=== PATIENT | male | born 1950 | race Caucasian/White ===

== ENCOUNTER 2025-01-09 10:28 | Emergency (ER) | payer OTHER, SELFPAY ==
[2025-01-09 10:42] VITALS: BP 107/74; PULSE 89; RESP 16; TEMP 36.9; O2SAT 94; BMI 28.0
--- NOTE | 2025-01-09 10:59 | CRLHL7_ITS ---
For Patients: As a result of the Century Cures Act, medical imaging exams and procedure reports are released immediately into your electronic medical record. You may view this report before your referring provider. If you have questions, please contact your health care provider. INDICATION: Trauma. Hit in head by object. Left eyebrow laceration. TECHNIQUE: CT of the head without contrast. Coronal and sagittal reformats are included. COMPARISON: None. FINDINGS: No acute intracranial hemorrhage. No mass effect or midline shift. No hydrocephalus or extra-axial collections. Scattered white matter hypoattenuation, typical for chronic microvascular ischemic change. Intracranial vascular calcifications. No acute osseous abnormalities. Mastoid air cells and paranasal sinuses are clear. Small left supraorbital laceration. IMPRESSION: IMPRESSION: 1. No acute intracranial abnormalities. Please note that all CT scans at this facility use dose modulation, iterative reconstruction, and/or weight-based dosing when appropriate to reduce radiation dose to as low as reasonably achievable. Dictated by Truong Jordan MD @ 01/09/2025 11:30:00 AM (Electronically Signed)
--- NOTE | 2025-01-09 11:31 | ED.GENADULT ---
HPI - General Adult General Date Seen: 01/09/25 Chief complaint: Laceration/Wound Stated complaint: laceration on forehead Time Seen by Provider: 01/09/25 10:51 History of Present Illness HPI narrative: Patient is a 74-year-old male here with a laceration over his left eyebrow. 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 No loss of consciousness. Bleeding controlled. No neck pain or other complaints. Does not complain of severe headache, vomiting or other markers are of significant head injury. Related Data Allergies Allergy/AdvReac Type Severity Reaction Status Date / Time No Known Drug Allergies Allergy Verified 01/09/25 10:49 Exam Narrative: Exam Narrative: Vital signs reviewed In general, alert, well-appearing elderly male. Head: Normocephalic. Over his left eyebrow there is a 4 cm laceration which is roughly the vertically oriented, this is deep down to the galea. Cannot rule out step off with palpation. No obvious foreign body. Eyes: Pupils are equal and reactive, extraocular movements are full. ENT: No other facial trauma. Const: Vital Signs, click to edit/add: Vital Signs - 24 hr 01/09/25 10:42 01/09/25 12:10 Temperature 98.4 F Pulse Rate [Right Radial] 89 82 Respiratory Rate 16 16 Blood Pressure [Le ft Upper Arm] 107/74 119/80 Pulse Oximetry 94 Oxygen Delivery Me thod Room Air Documenting provider has reviewed patient's vital signs: yes Course Course ED Course: Elected to do a CT scan just to rule out skull fracture, I do not see any evidence of skull fracture and radiology read is negative. Procedure note: The wound was anesthetized using lidocaine with epinephrine, explored without evidence of foreign body. Irrigated by dermatology technician. Closed using deep sutures with 5 0 Vicryl, 2 deep sutures were placed. superficial sutures using 5 0 nylon, a total of 6 simple interrupted superficial sutures were placed. He tolerated this well. Antibiotic ointment is placed over the wound. Discussed routine wound care. Recommend suture removal in 5-7 days, he says he will go to the MD in [place] to have this done. Return for any signs of infection, severe head injury such as severe headache, vomiting confusion etcetera. Vital Signs Vital signs: Initial Vital Signs Temperature 98.4 F 01/09/25 10:42 Temperature Source Temporal Artery Scan 01/09/25 10:42 Pulse Rate 89 01/09/25 10:42 Pulse Rhythm Regular 01/09/25 10:42 Respiratory Rate 16 01/09/25 10:42 Blood Pressure 107/74 01/09/25 10:42 Blood Pressure Mean 85 01/09/25 10:42 Pulse Oximetry 94 01/09/25 10:42 Oxygen Delivery Method Room Air 01/09/25 10:42 Vital Signs Temperature 98.4 F 01/09/25 10:42 Pulse Rate 89 01/09/25 10:42 Respiratory Rate 16 01/09/25 10:42 Blood Pressure 107/74 01/09/25 10:42 Pulse Oximetry 94 01/09/25 10:42 Oxygen Delivery Method Room Air 01/09/25 10:42 Temperature 98.4 F 01/09/25 10:42 Pulse Rate 82 01/09/25 12:10 Respiratory Rate 16 01/09/25 12:10 Blood Pressure 119/80 01/09/25 12:10 Pulse Oximetry 94 01/09/25 10:42 Oxygen Delivery Method Room Air 01/09/25 10:42 Discharge Plan Discharge Clinical Impression: Forehead laceration Patient Disposition: Home, Self-Care Condition: Improved Instructions: Laceration (ED) Additional Instructions: Suture removal in 5-7 days at your clinic. Return any time for signs of infection. I would recommend an ointment such as Vaseline or Aquaphor on the wound several times a day to keep the stitches from getting scabbed over. This will help with wound healing as well as make it easier to take out the stitches. Follow Up/Referrals: Provider,Not a Local [Primary Care Provider] - Stand Alone [facility]: [facility] Inst[facility]
[2025-01-09 12:10] VITALS: BP 119/80; PULSE 82; RESP 16
--- OUTSIDE RECORDS SUMMARY | 2025-01-09 17:46 | XMS_ITS | Encounter Summary ---
Author Name [facility] [place] [facility] [place] Address [address] [place] [address] Care Team Providers Care Supervisor [employer] Name Role Phone CRESENCIO FLORENCE Primary Care Provider Unavaila ble Insurance Providers: All historical and current Section Date Range: From patient's date of to the date document was created. This section includes the names of all active insurance providers for the patient. Insurance Provider Type of Coverage Plan Name Start of Policy Coverage End of Policy Coverage Group Number Member ID Insurance Provider's Telephone Number Policy Munoz's Name Patient's Relationship to Policy Munoz MEDICARE (WNR) MEDICARE (M) PART B Jul 25, 2016 PART B [id number] [phone] LORIE FLEMING PATIENT MEDICARE (WNR) MEDICARE (M) PART A Jul 25, 2016 PART A [id number] [phone] LORIE FLEMING PATIENT MEDICARE (WNR) MEDICARE (M) PART A Jul 25, 2016 PART A [id number] [phone] LORIE FLEMING PATIENT MEDICARE (WNR) MEDICARE (M) PART B Jul 25, 2016 PART B [id number] [phone] LORIE FLEMING PATIENT MEDICARE (WNR) MEDICARE (M) PART A Jul 25, 2016 PART A [id number] LORIE FLEMING PATIENT MEDICARE (WNR) MEDICARE (M) PART B Jul 25, 2016 PART B [id number] [phone] LORIE FLEMING PATIENT MEDICARE (WNR) MEDICARE (M) PART A Jul 25, 2016 PART A [id number] LORIE FLEMING PATIENT MEDICARE (WNR) MEDICARE (M) PART B Jul 25, 2016 PART B [id number] LORIE FLEMING PATIENT Selected Encounter This section includes the information on record at [place] for the Encounter. Date/Time Encounter Type Encounter Description Reason Pro vider Source May 07, 2024 10:48 AM Outpatient Encounter ADMIN PAT ACTIVTIES (MASNONCT) IHE Encounter Template Text not used by [place] Plan of Treatment: Future Appointments (+ 6 months) and Future Tests (+/- 45 days) The Plan of Treatment section includes future care activities for the patient from all [place] treatmentfacilities. This section includes future appointments and future orders which are active, pending or scheduled. Future Appointments This section includes appointments that were scheduled to occur 6 months from the date of the Encounter, up to a maximum of 20 appointments. The data comes from all [place] treatment facilities. Appointment Date/Time Appointment Type Appointme nt Facility Name Nov 01, 2024 02:00 PM AMBULATORY - SURGERY [facility] Advance Directives: All historical and current Section Date Range: From patient's date of to the date document was created. This section includes ALL of a patient's completed or amended [place] Advance and Rescinded Directives. The entries below indicate that a directive exists for the patient, but an actual copy is not included with this document. The data comes from all [place] facilities. Date Advance Directives Provider Source Feb 07, 2022 ADVANCE DIRECTIVE DISCUSSION [facility] Feb 07, 2022 ADVANCE DIRECTIVE [facility] Encounter Notes: All associated encounter notes This section contains the clinical notes associated to the Encounter. Date/Time Encounter Note(s) Provider Source May 07, 2024 10:48 AM TRAVELING/RELOCATI NG CONSULT: LOCAL TITLE: TRAVELING UNVIERSAL CONSULT RESULTS STANDARD TITLE: TRAVELING/RELOCATING CONSULT DATE OF NOTE: MAY 07, 2024@10:48 ENTRY DATE: MAY 07, 2024@10:48:29 AUTHOR: KRAUSHAAR,TERRIL A EXP COSIGNER: URGENCY: STATUS: COMPLETED Traveling Loyal consult received from [facility] with request for Dermatology. A [facility] CC- Dermatology Consult has been placed for the Traveling Loyal and the Clinic has scheduled on 05/05/24 @ 14:15. /toshia/ Bentley Ramos MSN, SILVER, pillow filler Coordinator Signed: 05/07/2024 10:48 RUBIA RAMOS [facility]
--- OUTSIDE RECORDS SUMMARY | 2025-01-09 17:46 | XMS_ITS | Encounter Summary ---
Author Name [facility] [facility] [place] [facility] [place] Address [address] [place] [address] Care Team Providers Care Journeyman Electrician Pv Installer Name Role Phone CRESENCIO FLORENCE Primary Care [...] Policy Munoz MEDICARE (WNR) MEDICARE (M) PART A Jul 25, 2016 PART A [id number] [phone] LONNIELORIE MARION PATIENT MEDICARE (WNR) MEDICARE (M) PART B Jul 25, 2016 PART B [id number] [phone] LORIE FLEMING PATIENT MEDICARE (WNR) MEDICARE (M) PART B Jul 25, 2016 PART B [id number] [phone] LONNIELORIE MARION PATIENT MEDICARE (WNR) MEDICARE (M) PART A Jul 25, 2016 PART A [id number] [phone] LONNIELORIE MARION PATIENT MEDICARE (WNR) MEDICARE (M) PART A Jul 25, 2016 PART A [id number] LORIE FLEMING MARION PATIENT MEDICARE (WNR) MEDICARE (M) PART B Jul 25, 2016 PART B [id number] LORIE FLEMING PATIENT MEDICARE (WNR) MEDICARE (M) PART A Jul 25, 2016 PART A [id number] LORIE FLEMING PATIENT MEDICARE (WNR) MEDICARE (M) PART B Jul 25, 2016 PART B [id number] LORIE FLEMING PATIENT Selected Encounter This section includes the information on record at [place] for the Encounter. Date/Time Encounter Type Encounter Description Reason Pro vider Source Dec 20, 2024 12:00 AM Outpatient Encounter EVENT (HISTORICAL) IHE Encounter Template Text not used by [place] Plan of Treatment: Future Appointments (+ 6 months) and Future Tests (+/- 45 days) The Plan of Treatment section includes future care activities for the [facility] [place] [facility] This section includes future appointments and future orders which are active, pending or scheduled. Future Appointments This section includes appointments that were scheduled to occur 6 months from the date of the Encounter, up to a maximum of 20 appointments. The data comes from all [facility]. Appointment Date/Time Appointment Type Appointme nt Facility Name December 23, 2024 09:40 AM AMBULATORY - SURGERY [facility] January 07, 2025 11:00 AM AMBULATORY - SURGERY [facility] Mar 02, 2025 01:15 PM AMBULATORY - NONE [facility] Active, Pending, and Scheduled Orders This section includes a listing of several types of active, pending, and scheduled orders, including clinic medications orders, diagnostic test orders, procedure orders and consult orders; where the start date of the order is 45 days before the date of the Encounter or 45 days after the date of theEncounter. The data comes from all [facility]. Test Date/Time Test Type Test Details Facility Name Dec 20, 2024 02:57 PM Consult Order ENDOSCOPY OUTPT PROCEDURE Cons Care Management Coordinator's Choice [facility] Dec 20, 2024 02:59 PM Consult Order ORTHOPEDIC S OUTPT-HIP Cons Care Management Coordinator's Choice [facility] Lab Results: +/- 30 days of the encounter This section includes the Chemistry and Hematology Lab Results on record with [place] for the patient. Radiology Reports and Pathology Reports are provided separately, in subsequent sections. Lab Results This section contains the Chemistry/Hematology Results that were resulted 30 days before or 30 daysafter the date of the Encounter. Date/Time Source Result Type Result - Unit Interpretation Reference Range Specimen Type Comment Dec 20, 2024 03:05 PM MARY[facility] NA[facility] COMPREHENSIVE METABOLIC PANEL+MG PLASMA Specim en Type: PLASMA No comment entered. Ordering Provider: PEDRO FLORENCE Report Released Date/Time: Dec 20, 2024 02:45 PM Reporting Lab: [facility] [id number] Performing Lab: [facility] [id number] CREATININE 1.2 mg/dL 0.7-1.2 UREA NITROGEN 11 mg/dL 8-26 GLUCOSE 111 mg/dL H 70-100 SODIUM 140 mmol/L 136-145 POTASSIUM 4.2 mmol/L 3.5-5.1 CHLORIDE 106 mmol/L 98-107 CO2 21 mmol/L L 22-29 CALCIUM 9.9 mg/dL 8.4-10.2 PROTEIN,TOTAL 8.1 g/dL 6.4-8.3 ALBUMIN 5.2 g/dL H 3.5-5.0 BILIRUBIN, TOTAL 0.6 mg/dL 0.2-1.2 MAGNESIUM 2.2 mg/dL 1.6-2.6 ANION GAP 13 mmol/L 5-15 ALKALINE PHOSPHATASE 56 U/L 40-150 ALT/SGPT 17 U/L <44 AST/SGOT 21 U/L 11-34 .CREAT EGFR(CKD-EPI) 64 >60 Dec 20, 2024 03:05 PM MARYLU NAIR CBC & DIFF BLOOD Specimen Type: BLOOD Comment: Automated Differential Performed Ordering Provider: CRESENCIO FLORENCE Report Released Date/Time: Dec 20, 2024 02:45 PM Reporting Lab: [facility] [id number] Performing Lab: [facility] [id number] WBC 9.2 4.0-11.0 RBC 5.08 4.60-6.20 HGB 15.8 g/dL 13.5-17.9 HCT 47.9 41.0-54.0 MCV 94.3 fL 80.0-100.0 MCH 31.1 pg 27.0-33.0 MCHC 33.0 g/dL 32.0-37.5 PLT 193 150-400 MPV 9.9 fL 9.1-13.0 NEUT 68.6 40.0-80.0 LYMPHS 22.3 15.0-45.0 MONO 6.9 2.0-12.0 EOSINO 1.7 0.0-6.0 BASO 0.3 0.0-2.0 RDW 13.1 11.5-14.5 ABS LYMPH 2.1 1.0-4.0 ABS MONO 0.6 0.1-1.0 ABS NEUT 6.3 2.0-7.7 ABS EOS 0.2 0.0-0.5 ABS BASO 0.0 0.0-0.2 IG(META,MYELO,PRO) 0.2 ABS IMMATURE GRAN 0.0 0.0-0.1 Social History: Smoking Status (Most current) and Tobacco Use (All prior to encounter date) This section includes the most current, and the historical, smoking and tobacco- related health factors from the [place] facility where the Encounter took place. Current Smoking Status This section includes the most current smoking, or tobacco-related health factor, from the [place] facility where the Encounter took place. Date/Time Current Smoking Status Comment Facil ity January 17, 2021 11:17 AM VA-TOBACCO USER EVERY DAY [facility] Tobacco Use History This section includes a history of the smoking, or tobacco-related health factors, that were collected on or before the date of the Encounter. The data comes from the [place] facility where the Encounter took place. Date/Time Smoking Status/Tobacco Use Comment F acility January 17, 2021 11:17 AM VA-TOBACCO USE > 1 5 LESS THAN 30 YEARS [facility] January 17, 2021 11:17 AM VA-TOBACCO USE ADVICE [facility] January 17, 2021 11:17 AM VA-TOBACCO USE CONVERSION WORKER NO [facility] January 17, 2021 11:17 AM VA-TOBACCO USE MED NO [facility] January 17, 2021 11:17 AM VA-TOBACCO USER EVERY DAY [facility] Dec 08, 2019 08:49 AM VA-TOBACCO USE 30 YEARS OR MORE [facility] Dec 08, 2019 08:49 AM VA-TOBACCO USE ADVICE [facility] Dec 08, 2019 08:49 AM VA-TOBACCO USE CONVERSION WORKER NO [facility] Dec 08, 2019 08:49 AM VA-TOBACCO USE MED NO [facility] Dec 08, 2019 08:49 AM VA-TOBACCO USE WI 30 MIN OF WAKE UP [facility] Dec 08, 2019 08:49 AM VA-TOBACCO USER EVERY DAY [facility] Nov 22, 2013 08:44 AM FORMER TOBACCO USE >1Y <7Y [facility] Advance Directives: All historical and current Section Date Range: From patient's date of to the date document was created. This section includes ALL of a patient's completed or amended [place] Advance and Rescinded Directives. The entries below indicate that a directive exists for the patient, but an actual copy is not included with this document. The data comes from all [place] facilities. Date Advance Directives Provider Source Feb 07, 2022 ADVANCE DIRECTIVE NIA [facility] Feb 07, 2022 ADVANCE DIRECTIVE DISCUSSION SLY [facility] Radiology Reports: +/- 30 days of the encounter Radiology Reports For cases when an order for radiology services may have been completed prior to the date of the Encounter, the report list includes the Radiology Reports that were completed up to 30 days before dateof the Encounter. For cases when an order for radiology services may have been completed after the date of the Encounter, the report list also includes the Radiology Reports that were completed up to30 days after date of the Encounter. The data comes from all [place] treatment facilities. Date/Time Radiology Report Provider Source Dec 20, 2024 02:59 PM HIP LEFT 2 VIEWS W/PELVIS: EDER FLEMING [id number] -[phone] M Exm Date: DEC 20, 2024@14:59 Req Phys: CRESENCIO FLORENCE Pat Loc: [facility] (Req'g Loc) Im Loc: [facility] RADIOLOGY Service: [place] [address] (Case [id number] COMPLETE) HIP LEFT 2 VIEWS W/PELVIS (RAD Detailed) CPT:09661 Proc Modifiers : LEFT Reason for Study: left hip pain Clinical History: left hi pain gets very stiff My pager number on record is: . I confirm that the pager number/cell phone number above is correct for reporting critical results. Trainees only: Enter your staff provider's info here: LAST CREATININE 1.0 (02/04/24) Report Status: Verified Date Reported: DEC 20, 2024 Date Verified: DEC 20, 2024 [employer] E-Sig:/ES/LESLYE PEREZ MD Report: EXAMINATION: AP pelvis, 2 views left hip CLINICAL HISTORY: Left hip pain. COMPARISON FILMS: Previous dated 01/18/2021. Impression: Generalized bony demineralization. Degenerative changes in the sacroiliac joints and mild degenerative changes in both hips not significantly changed since 2020. 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 No acute fracture. No dislocation. No radiopaque foreign bodies. Report Sign Date/Time: 12/20/2024 3:25 PM Primary Interpreting Staff: LESLYE PEREZ MD, RADIOLOGIST ([employer]) /LESLYE [facility]
--- OUTSIDE RECORDS SUMMARY | 2025-01-09 17:46 | XMS_ITS | Encounter Summary ---
Author Name [facility] [place] Address [address] [place] [address] Care Team Providers Care Director Of Premium [employer] Name Role Phone CRESENCIO FLORENCE Primary Care [...] PART A Jul 25, 2016 PART A [id number] [phone] LORIE FLEMING PATIENT MEDICARE (WNR) MEDICARE (M) PART B Jul 25, 2016 PART B [id number] [phone] LONNIELORIE MARION PATIENT MEDICARE (WNR) MEDICARE (M) PART A Jul 25, 2016 PART A [id number] [phone] LORIE FLEMING MARION PATIENT MEDICARE (WNR) MEDICARE (M) PART B Jul 25, 2016 PART B [id number] [phone] LORIE FLEMING MARION PATIENT MEDICARE (WNR) MEDICARE (M) PART A Jul 25, 2016 PART A [id number] LORIE FLEMING MARION PATIENT MEDICARE (WNR) MEDICARE (M) PART B Jul 25, 2016 PART B [id number] LORIE FLEMING PATIENT MEDICARE (WNR) MEDICARE (M) PART A Jul 25, 2016 PART A [id number] LORIE FLEMING PATIENT MEDICARE (WNR) MEDICARE (M) PART B Jul 25, 2016 PART B [id number] LORIE FLEMING PATIENT Selected Encounter This section includes the information on record at [place] for the Encounter. Date/Time Encounter Type Encounter Description Reason Pro vider Source Apr 30, 2024 12:38 PM Outpatient Encounter COMMUNITY CARE CONSULT IHE Encounter Template Text not used by [place] Plan of Treatment: Future Appointments (+ 6 months) and Future Tests (+/- 45 days) The Plan of Treatment section includes future care activities for the patient from all [place] treatmentfacilities. This section includes future appointments and future orders which are active, pending or scheduled. Future Appointments This section includes appointments that were scheduled to occur 6 months from the date of the Encounter, up to a maximum of 20 appointments. The data comes from all [place] treatment facilities. Appointment Date/Time Appointment Type Appointme nt Facility Name May 05, 2024 02:15 PM AMBULATORY - NONE [facility] Advance Directives: All historical and current Section Date Range: From patient's date of to the date document was created. This section includes ALL of a patient's completed or amended [place] Advance and Rescinded Directives. The entries below indicate that a directive exists for the patient, but an actual copy is not included with this document. The data comes from all [place] facilities. Date Advance Directives Provider Source Feb 07, 2022 ADVANCE DIRECTIVE NIA [facility]RO[facility] Feb 07, 2022 ADVANCE DIRECTIVE DISCUSSION SLY [facility] Encounter Notes: All associated encounter notes This section contains the clinical notes associated to the Encounter. Date/Time Encounter Note(s) Provider Source Apr 30, 2024 12:41 PM NONVA NOTE: LOCAL TITLE: COMMUNITY CARE-CARE COORDINATION PLAN NOTE STANDARD TITLE: NONVA NOTE DATE OF NOTE: APR 30, 2024@12:41 ENTRY DATE: APR 30, 2024@12:41:34 AUTHOR: ANNIA LONGORIA EXP COSIGNER: URGENCY: STATUS: COMPLETED Community Care Consult: COMMUNITY CARE-DERMATOLOGY Consult No: [id number] HSRM Referral #: Chief Complaint: Melanoma and other malignancies Patient Admitted? Unknown Level of Care Coordination Basic Care Coordination was determined from: Chart Review Facility Community Care Office Contact Care Coordination Point of Contact: Annia Longoria Phone Number: [phone] Services: Navigation Scheduling Post-Appointment Follow-Up E-Communications to referring provider Plan: Care coordination may include: -AMSA scheduling assistance -Care coordination as needed /es/ ANNIA LONGORIA RN Signed: 04/30/2024 12:42 ANNIA LONGORIA [facility]
--- OUTSIDE RECORDS SUMMARY | 2025-01-09 17:46 | XMS_ITS | Encounter Summary ---
Author Name [facility] [facility] [place] [facility] [place] [facility] [place] Address [address] [place] [address] Care Team Providers Care Director Of Respiratory Therapy Name Role Phone CRESENCIO FLORENCE Primary Care [...] PART A Jul 25, 2016 PART A [id number] [phone] LORIE FLEMING PATIENT MEDICARE (WNR) MEDICARE (M) PART B Jul 25, 2016 PART B [id number] [phone] LORIE FLEMING PATIENT MEDICARE (WNR) MEDICARE (M) PART A Jul 25, 2016 PART A [id number] [phone] LORIE FLEMING PATIENT MEDICARE (WNR) MEDICARE (M) PART B Jul 25, 2016 PART B [id number] [phone] LORIE FLEMING PATIENT MEDICARE (WNR) MEDICARE (M) PART A Jul 25, 2016 PART A [id number] LONNIELORIE MARION PATIENT MEDICARE (WNR) MEDICARE (M) PART B Jul 25, 2016 PART B [id number] LORIE FLEMING PATIENT MEDICARE (WNR) MEDICARE (M) PART A Jul 25, 2016 PART A [id number] LORIE FLEMING PATIENT MEDICARE (WNR) MEDICARE (M) PART B Jul 25, 2016 PART B [id number] LORIE FLEMING PATIENT Selected Encounter This section includes the information on record at [place] for the Encounter. Date/Time Encounter Type Encounter Description Reason Provider Source May 25, 2024 07:53 AM CASE MANAGEMENT ADMIN PAT ACTIVTIES (MASNONCT) VIV HOFFMAN I[place] Encounter Template Text not used by [place] Plan of Treatment: Future Appointments (+ 6 months) and Future Tests (+/- 45 days) The Plan of Treatment section includes future care activities for the patient [facility] [place] [facility] This section includes future appointments and future orders which are active, pending or scheduled. Future Appointments This section includes appointments that were scheduled to occur 6 months from the date of the Encounter, up to a maximum of 20 appointments. The data comes from all [place] treatment facilities. Appointment Date/Time Appointment Type Appointme nt Facility Name Nov 01, 2024 02:00 PM AMBULATORY - SURGERY [facility] Social History: Smoking Status (Most current) and Tobacco Use (All prior to encounter date) This section includes the most current, and the historical, smoking and tobacco- related health factors from the [place] facility where the Encounter took place. Current Smoking Status This section includes the most current smoking, or tobacco-related health factor, from the [place] facility where the Encounter took place. Date/Time Current Smoking Status Comment Magdalena ityaajira January 17, 2021 11:17 AM VA-TOBACCO USER EVERY DAY [facility] Tobacco Use History This section includes a history of the smoking, or tobacco-related health factors, that were collected on or before the date of the Encounter. The data comes from the [place] facility where the Encounter took place. 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 [facility] January 17, 2021 11:17 AM VA-TOBACCO USE MED NO [facility] January 17, 2021 11:17 AM VA-TOBACCO USER EVERY DAY [facility] Dec 08, 2019 08:49 AM VA-TOBACCO USE 30 YEARS OR MORE [facility] Dec 08, 2019 08:49 AM VA-TOBACCO USE ADVICE [facility] Dec 08, 2019 08:49 AM VA-TOBACCO USE SAMPLE GRADER NO [facility] Dec 08, 2019 08:49 AM VA-TOBACCO USE MED NO [facility] Dec 08, 2019 08:49 AM VA-TOBACCO USE WI 30 MIN OF WAKE UP [facility] Dec 08, 2019 08:49 AM VA-TOBACCO USER EVERY DAY [facility] Nov 22, 2013 08:44 AM FORMER TOBACCO USE >1Y <7Y [facility] Advance Directives: All historical and current Section Date Range: From patient's date of to the date document was created. This section includes ALL of a patient's completed or amended [place] Advance and Rescinded Directives. The entries below indicate that a directive exists for the patient, but an actual copy is not included with this document. The data comes from all [place] facilities. Date Advance Directives Provider Source Feb 07, 2022 ADVANCE DIRECTIVE NIA MONROE [facility] Feb 07, 2022 ADVANCE DIRECTIVE DISCUSSION SLY MONROE [facility] Encounter Notes: All associated encounter notes This section contains the clinical notes associated to the Encounter. Date/Time Encounter Note(s) Provider Source May 25, 2024 07:53 AM BRYOLOGIST REFER RAL NOTE: LOCAL TITLE: TRAVELING/RELOCATING COORDINATOR NOTE STANDARD TITLE: BRYOLOGIST REFERRAL NOTE DATE OF NOTE: MAY 25, 2024@07:53 ENTRY DATE: MAY 25, 2024@07:53:41 AUTHOR: VIV HOFFMAN EXP COSIGNER: URGENCY: STATUS: COMPLETED LOCAL TITLE: COMMUNITY CARE CONSULT RESULT NOTE STANDARD TITLE: NONVA CONSULT DATE OF NOTE: MAY 05, 2024 ENTRY DATE: MAY 20, 2024@07:26:06 AUTHOR: ANNIA LONGORIA EXP COSIGNER: URGENCY: STATUS: COMPLETED 05/05/24 COMMUNITY CARE-DERMATOLOGY VISIT NOTES This is a CPRS Note. Scanned document attached to this note Click on Tools, click on [employer] Display. /es/ ANNIA LONGORIA RN ADDED COMMENT 05/25/24 07:VIV HYLTON JAMI L Odering Provider (s) co-signed to note alerting them of the above. /toshia/ ITALO WALSH TRAVELING COORDINATOR Signed: 05/25/2024 07:54 Receipt Acknowledged By: 05/25/2024 10:50 /es/ LES DEL TORORN REGISTERED NURSE 05/25/2024 08:31 /es/ CRESENCIO FLORENCE PHYSICIAN VIV HOFFMAN [facility]
--- OUTSIDE RECORDS SUMMARY | 2025-01-09 17:46 | XMS_ITS | Encounter Summary ---
Author Name [facility] [place] Organization [facility] [place] [facility] [place] Address [address] [place] [address] Care Team Providers Care Air Conditioning Installer Supervisor Name Role Phone CRESENCIO FLORENCE Primary Care [...] PART A Jul 25, 2016 PART A [id number] [phone] LORIE FLEMING PATIENT MEDICARE (WNR) MEDICARE (M) PART B Jul 25, 2016 PART B [id number] LORIE FLEMING PATIENT MEDICARE (WNR) MEDICARE (M) PART B Jul 25, 2016 PART B [id number] [phone] LONNIELORIE MARION PATIENT MEDICARE (WNR) MEDICARE (M) PART A Jul 25, 2016 PART A [id number] [phone] LORIE FLEMING PATIENT MEDICARE (WNR) MEDICARE (M) PART A Jul 25, 2016 PART A [id number] [phone] LONNIELORIE MARION PATIENT MEDICARE (WNR) MEDICARE (M) PART B Jul 25, 2016 PART B [id number] LORIE FLEMING PATIENT MEDICARE (WNR) MEDICARE (M) PART A Jul 25, 2016 PART A [id number] LORIE FLEMING PATIENT MEDICARE (WNR) MEDICARE (M) PART B Jul 25, 2016 PART B [id number] LORIE FLEMING PATIENT Selected Encounter This section includes the information on record at [place] for the Encounter. Date/Time Encounter Type Encounter Description Reason Pro vider Source Dec 10, 2024 01:51 PM Outpatient Encounter COMMUNITY CARE CONSULT IHE Encounter Template Text not used by [place] Plan of Treatment: Future Appointments (+ 6 months) and Future Tests (+/- 45 days) The Plan of Treatment section includes future care activities for the patient from all [place] [facility]. This section includes future appointments and future orders which are active, pending or scheduled. Future Appointments This section includes appointments that were scheduled to occur 6 months from the date of the Encounter, up to a maximum of 20 appointments. The data comes from all [facility]. Appointment Date/Time Appointment Type Appointme nt Facility Name Dec 20, 2024 02:00 PM AMBULATORY - MEDICINE [facility] December 23, 2024 09:40 AM AMBULATORY - SURGERY [facility] January 07, 2025 11:00 AM AMBULATORY - SURGERY [facility] Mar 02, 2025 01:15 PM AMBULATORY - NONE [facility] Active, Pending, and Scheduled Orders This section includes a listing of several types of active, pending, and scheduled orders, including clinic medications orders, diagnostic test orders, procedure orders and consult orders; where the start date of the order is 45 days before the date of the Encounter or 45 days after the date of theEncounter. The data comes from all [facility]. Test Date/Time Test Type Test Details Facility Name Nov 01, 2024 11:14 AM Consult Order COMMUNITY CARE-UROLOGY Cons Enrollment Advisor's Choice [facility] Dec 20, 2024 02:57 PM Consult Order ENDOSCOPY OUTPT PROCEDURE Cons Enrollment Advisor's Choice [facility] Dec 20, 2024 02:59 PM Consult Order ORTHOPEDIC S OUTPT-HIP Cons Enrollment Advisor's Choice [facility] Lab Results: +/- 30 days of the encounter This section includes the Chemistry and Hematology Lab Results on record with [place] for the patient. Radiology Reports and Pathology [...] Dec 20, 2024 02:45 PM Reporting Lab: [facility] [id number] Performing Lab: [facility] [id number] CREATININE 1.2 mg/dL 0.7-1.2 UREA NITROGEN 11 [...] Dec 20, 2024 02:45 PM Reporting Lab: [facility] [id number] Performing Lab: [facility] [id number] WBC 9.2 4.0-11.0 RBC 5.08 4.60-6.20 HGB [...] and tobacco- related health factors from the [place] facility where the Encounter took place. Current Smoking Status This section includes the most current smoking, or tobacco-related health factor, from the [place] facility where the Encounter took place. Date/Time Current Smoking Status Comment Magdalena ity January 17, 2021 11:17 AM VA-TOBACCO USER EVERY DAY [facility] Tobacco Use History This section includes a history of the smoking, or tobacco-related health factors, that were collected on or before the date of the Encounter. The data comes from the [place] facility where the Encounter took place. 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 [facility] January 17, 2021 11:17 AM VA-TOBACCO USE MED NO [facility] January 17, 2021 11:17 AM VA-TOBACCO USER EVERY DAY [facility] Dec 08, 2019 08:49 AM VA-TOBACCO USE 30 YEARS OR MORE [facility] Dec 08, 2019 08:49 AM VA-TOBACCO USE ADVICE [facility] Dec 08, 2019 08:49 AM VA-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 This section includes ALL of a patient's completed or amended [place] Advance and Rescinded Directives. The entries below indicate that a directive exists for the patient, but an actual copy is not included with this document. The data comes from all [place] facilities. Date Advance Directives Provider Source Feb 07, 2022 ADVANCE DIRECTIVE NIA [facility] Feb 07, 2022 ADVANCE DIRECTIVE DISCUSSION SLY [facility] Radiology Reports: +/- 30 days of the [...] the Encounter. The data comes from all [place] treatment facilities. Date/Time Radiology Report Provider Source Dec 20, 2024 02:59 PM HIP LEFT 2 VIEWS W/PELVIS: EDER FLEMING [id number] -[id number] M Exm Date: DEC 20, 2024@14:59 Req Phys: CRESENCIO FLORENCE Pat Loc: [facility] PACT [facility] (Req'g Loc) [facility] Loc: [facility] RADIOLOGY Service: [place] [address] (Case [id number] COMPLETE) HIP LEFT 2 VIEWS W/PELVIS (RAD Detailed) CPT:44764 Proc Modifiers : LEFT Reason for Study: left hip pain Clinical History: left hi pain gets very stiff My pager number on record is: . I confirm that the pager number/cell phone number above is correct for reporting critical results. Trainees only: Enter your staff provider's info here: LAST CREATININE 1.0 (06/12/24) Report Status: Verified Date Reported: DEC 20, 2024 Date Verified: DEC 20, 2024 Continuous Dryout Operator Helper E-Sig:/ES/LESLYE PEREZ MD Report: EXAMINATION: AP pelvis, [...] Primary Interpreting Staff: LESLYE PEREZ MD, RADIOLOGIST (Continuous Dryout Operator Helper) /LESLYE HOLLY [facility] Encounter Notes: All associated encounter notes This section contains the clinical notes associated to the Encounter. Date/Time Encounter Note(s) Provider Source Dec 10, 2024 01:51 PM NONVA NOTE: LOCAL TITLE: COMMUNITY CARE PRE-AUTH LETTER (AUTOPRINT) STANDARD TITLE: NONVA NOTE DATE OF NOTE: DEC 10, 2024@13:51 ENTRY DATE: DEC 10, 2024@13:51:12 AUTHOR: CARLTON ESCOBAR COSIGNER: URGENCY: STATUS: COMPLETED Nov EDER FLEMING [address] [place], [place] [address] Dear EDER FLEMING, Your VA provider has referred you to a provider within the community for care. Your medical care for COMMUNITY CARE - UROLOGY has been authorized with the community care provider listed below. DO NOT REPORT TO THE [facility] Provider info: Care has been approved for the following vendor: Office name, address, and phone number: [employer] [address] [address] PHONE: [phone] Please contact the identified provider to schedule your community appointment. If you need assistance with this appointment, please call your facility community care office [facility] Office of Community Care at [phone] during the hours of 8:30AM - 3:00PM. Please follow up with your local [facility] community care office once this is scheduled. This step is needed to ensure your referral duration is maximized and the [place] has accurate referral information for billing purposes. Authorization Number: [id number] Referral Issue Date: Oct Expiration Date: May (subject to change based on first appointment) If you are unable to schedule this appointment or the appointment is no longer needed, please contact the community provider above for notification/rescheduling and then call the [facility] Office of Community Care at [phone] during the hours of 8:30AM - 3:00PM. If you need additional care/services not mentioned above or your authorization has and additional care is needed, please contact your primary care provider for a new referral. To review all care/service(s) approved under your referral, please go to the following link: [employer] [facility]) Co-Payments: If you are required to pay a VA co-payment, you will be billed by the VA for each authorized visit that you attend. However, you are NOT REQUIRED to make co-payments to a community provider. Thank you for the opportunity to serve you. Sincerely, [place] Community Care ([place]) /toshia/ CARLTON ESCOBAR LEAD MSA Signed: 12/10/2024 13:51 CARLTON ESCOBAR [facility]
--- OUTSIDE RECORDS SUMMARY | 2025-01-09 17:46 | XMS_ITS | Encounter Summary ---
Author Name [facility] [facility] [place] [facility] [place] Address [address] [place] [address] Care Team Providers [employer] Front Desk Clerk Name Role Phone CRESENCIO FLORENCE Primary Care [...] PART A Jul 25, 2016 PART A [id number] LORIE FLEMING PATIENT MEDICARE (WNR) MEDICARE (M) PART B Jul 25, 2016 PART B [id number] LORIE FLEMING PATIENT MEDICARE (WNR) MEDICARE (M) PART A Jul 25, 2016 PART A [id number] [phone] LONNIELORIE MARION PATIENT MEDICARE (WNR) MEDICARE (M) PART B Jul 25, 2016 PART B [id number] [phone] LORIE FLEMING PATIENT MEDICARE (WNR) MEDICARE (M) PART A Jul 25, 2016 PART A [id number] [phone] LONNIELORIE MARION PATIENT MEDICARE (WNR) MEDICARE (M) PART B Jul 25, 2016 PART B [id number] LORIE FLEMING PATIENT MEDICARE (WNR) MEDICARE (M) PART A Jul 25, 2016 PART A [id number] LORIE FLEMING PATIENT MEDICARE (WNR) MEDICARE (M) PART B Jul 25, 2016 PART B [id number] LORIE FLEMING PATIENT Selected Encounter This section includes the information on record at [place] for the Encounter. Date/Time Encounter Type Encounter Description Reason Provider Source December 23, 2024 09:40 AM OFFICE O/P EST LOW 20 MIN OPHTHALMOLOGY ICD-10-CM Z96.1 Presence of intraocular lens KENDRA MARIANO [facility] Encounter Template Text not used by [place] Assessments - Encounter Diagnoses This section includes the primary and secondary diagnoses documented for the Encounter. Date/Time Primary/Secondary Diagnosis Diagnosis Name Provider Source December 23, 2024 09:48 AM PRIMARY Presence of intraocular lens KENDRA MARIANO [facility] December 23, 2024 09:48 AM SECONDARY Other chronic allergic conjunctivitis KENDRA MARIANO [facility] December 23, 2024 09:48 AM SECONDARY Unspecified blepharitis unspecified eye, unspecified eyelid KENDRA MARIANO [facility] Plan of Treatment: Future Appointments (+ 6 months) and Future Tests (+/- 45 days) The Plan of Treatment section includes future care activities for the patient from all [facility] This section includes future appointments and future orders which are active, pending or scheduled. Future Appointments This section includes appointments that were scheduled to occur 6 months from the date of the Encounter, up to a maximum of 20 appointments. The data comes from all [place] treatment facilities. Appointment Date/Time Appointment Type Appointme nt Facility Name January 07, 2025 11:00 AM AMBULATORY - SURGERY [facility] Mar 02, 2025 01:15 PM AMBULATORY - NONE [facility] Active, Pending, and Scheduled Orders This section includes a listing of several types of active, pending, and scheduled orders, including clinic medications orders, diagnostic test orders, procedure orders and consult orders; where the start date of the order is 45 days before the date of the Encounter or 45 days after the date of theEncounter. The data comes from all [place] treatment [facility]. Test Date/Time Test Type Test Details Facility Name Dec 20, 2024 02:57 PM Consult Order ENDOSCOPY OUTPT PROCEDURE Cons Vessel Master's Choice MARYLU NAIR Dec 20, 2024 02:59 PM Consult Order ORTHOPEDIC S OUTPT-HIP Cons Vessel Master's Choice MARYLU NAIR Lab Results: +/- 30 days of the encounter This section includes the Chemistry and Hematology Lab Results on record with [place] for the patient. Radiology Reports and Pathology [...] Dec 20, 2024 02:45 PM Reporting Lab: [facility] [id number] Performing Lab: [facility] [id number] CREATININE 1.2 mg/dL 0.7-1.2 UREA NITROGEN 11 [...] Dec 20, 2024 02:45 PM Reporting Lab: [facility] [id number] Performing Lab: [facility] [id number] WBC 9.2 4.0-11.0 RBC 5.08 4.60-6.20 HGB [...] and tobacco- related health factors from the [place] facility where the Encounter took place. Current Smoking Status This section includes the most current smoking, or tobacco-related health factor, from the [place] facility where the Encounter took place. Date/Time Current Smoking Status Comment Magdalena ity January 17, 2021 11:17 AM VA-TOBACCO USER EVERY DAY [facility] Tobacco Use History This section includes a history of the smoking, or tobacco-related health factors, that were collected on or before the date of the Encounter. The data comes from the [place] facility where the Encounter took place. Date/Time Smoking Status/Tobacco Use Comment F acility January 17, 2021 11:17 AM VA-TOBACCO USE > 1 5 LESS THAN 30 YEARS [facility] January 17, 2021 11:17 AM VA-TOBACCO USE ADVICE [facility] January 17, 2021 11:17 AM VA-TOBACCO USE EXCHANGE SPECIALIST NO [facility] January 17, 2021 11:17 AM VA-TOBACCO USE MED NO [facility] January 17, 2021 11:17 AM VA-TOBACCO USER EVERY DAY [facility] Dec 08, 2019 08:49 AM VA-TOBACCO USE 30 YEARS OR MORE [facility] Dec 08, 2019 08:49 AM VA-TOBACCO USE ADVICE [facility] Dec 08, 2019 08:49 AM VA-TOBACCO USE EXCHANGE SPECIALIST NO [facility] Dec 08, 2019 08:49 AM VA-TOBACCO USE MED NO [facility] Dec 08, 2019 08:49 AM VA-TOBACCO USE WI 30 MIN OF WAKE UP [facility] Dec 08, 2019 08:49 AM VA-TOBACCO USER EVERY DAY [facility] Nov 22, 2013 08:44 AM FORMER TOBACCO USE >1Y <7Y [facility] Advance Directives: All historical and current Section Date Range: From patient's date of to the date document was created. This section includes ALL of a patient's completed or amended [place] Advance and Rescinded Directives. The entries below indicate that a directive exists for the patient, but an actual copy is not included with this document. The data comes from all [place] facilities. Date Advance Directives Provider Source Feb 07, 2022 ADVANCE DIRECTIVE NIA MONROE [facility] Feb 07, 2022 ADVANCE DIRECTIVE DISCUSSION SLY MONROE [facility] Radiology Reports: +/- 30 days of the [...] the Encounter. The data comes from all [place] treatment facilities. Date/Time Radiology Report Provider Source Dec 20, 2024 02:59 PM HIP LEFT 2 VIEWS W/PELVIS: EDER FLEMING [id number] -[id number] M Exm Date: DEC 20, 2024@14:59 Req Phys: CRESENCIO FLORENCE Pat Loc: [facility]) Img Loc: [facility] RADIOLOGY Service: [place] [address] (Case [id number] COMPLETE) HIP LEFT 2 VIEWS W/PELVIS (RAD Detailed) CPT:01115 Proc Modifiers : LEFT Reason for Study: [...] 20, 2024 Date Verified: DEC 20, 2024 Glassware Verifier E-Sig:/ES/LESLYE PEREZ MD Report: EXAMINATION: AP pelvis, [...] Primary Interpreting Staff: LESLYE PEREZ MD, RADIOLOGIST (Glassware Verifier) /LESLYE [facility] Encounter Notes: All associated encounter notes This section contains the clinical notes associated to the Encounter. Date/Time Encounter Note(s) Provider Source December 23, 2024 09:46 AM OPHTHALMOLOGY ATTE NDING NOTE: LOCAL TITLE: OPHTHALMOLOGY CLINIC NOTE STANDARD TITLE: OPHTHALMOLOGY ATTENDING NOTE DATE OF NOTE: DECEMBER 23, 2024@09:46 ENTRY DATE: DECEMBER 23, 2024@09:46:51 AUTHOR: MARIA ANTONIA MARIANO COSIGNER: URGENCY: STATUS: COMPLETED Clinic Progress Note CC: routine exam - VTD HPI: Denies difficulty @ d/n. No eye pain/discomfort. Denies diplopia. No fl/fl. Has ATs has not used in 3-4mo. No changes to general health. POHx: pseudophakic OU, blepharitis, CAC Eye Sx: see below FOHx: denies Social History Alcohol: yes Tobacco: denies Surgeries: MAY 31, 2020 Proc: CE IOL BILATERAL Allergies: Patient has answered NKA No new Allergies. - scVa OD: 20/25-1 OS: 20/50-1 Current Wearing/Last MR & ccVa from OD: -0.25 +0.50 x045 20/20 OS: -1.25 +0.75 x180 20/25-1 Manifest Refraction OD: plano sphere 20/20 OS: -1.50 +0.25 x175 20/25-1 ADD +2.50 20/20 SVR OD: +2.50 sphere OS: +1.00 +0.25 x175 Confrontational [place]: Full to finger counting: Right: Yes Left: Yes Extra Ocular Movement: Normal Pupils: Right: Round Left: Round Size: Right: 3 Left: 3 React to light: Right: Yes Left: Yes Afferent pupil defect: Right: No Left: No (IOP): iCare OD: 13 OS: 14 Dilation: tropicamide 1% and neosynephrine OU @9:45am I have reviewed the camera repair technician's note and agree with their findings. Patient is alert and oriented x 3. SLE, right : lids/lashes: dc, mgd conjunctiva/sclera: white and quiet cornea: clear epithelium, stroma, and no guttae anterior chamber: deep and quiet iris: round and flat lens: mfiol anterior vitreous: clear SLE, left : lids/lashes: dc, mgd conjunctiva/sclera: white and quiet cornea: clear epithelium, stroma, and no guttae anterior chamber: deep and quiet iris: round and flat lens: mfiol anterior vitreous: clear DFE, right: vitreous: clear optic nerve: 0.3 cup/disc, pink and healthy macula: sharp foveal light reflex vessels: normal caliber and distribution periphery: normal without holes or tears DFE, left: vitreous: clear optic nerve: 0.3 cup/disc, pink and healthy macula: sharp foveal light reflex vessels: normal caliber and distribution periphery: normal without holes or tears Impression/Plan: 1. Pseudophakia, ou - doing well, monitor 2. Blepharitis, ou - wc's, eyelid hygiene 3. Chronic allergic conjunctivitis - patanol bid RTC VECS 1 year /es/ MARIA ANTONIA MARIANO M.D. ROLL REPAIRER Signed: 12/23/2024 10:12 MARIA ANTONIA MARIANO [facility] December 23, 2024 09:32 AM [facility]: LOCAL TITLE: BATTERY STARTER NOTE STANDARD TITLE: BATTERY STARTER NOTE DATE OF NOTE: DECEMBER 23, 2024@09:32 ENTRY DATE: DECEMBER 23, 2024@09:32:28 AUTHOR: JAZZMINE KENDALL COSIGNER: URGENCY: STATUS: COMPLETED Eye Start Exam Patient: EDER FLEMING Sex: MALE SSN: [id number] Birthdate: [birth year] CC: routine exam - VTD HPI: Denies difficulty @ d/n. No eye pain/discomfort. Denies diplopia. No fl/fl. Has ATs has not used in 3-4mo. No changes to general health. POHx: pseudophakic OU, blepharitis, CAC Eye Sx: see below FOHx: denies Social History Alcohol: yes Tobacco: denies Surgeries: MAY 31, 2020 Proc: CE IOL BILATERAL Allergies: Patient has answered NKA No new Allergies. - scVa OD: 20/25-1 OS: 20/50-1 Current Wearing/Last MR & ccVa from OD: -0.25 +0.50 x045 20/20 OS: -1.25 +0.75 x180 20/25-1 Manifest Refraction OD: plano sphere 20/20 OS: -1.50 +0.25 x175 20/25-1 ADD +2.50 20/20 SVR OD: +2.50 sphere OS: +1.00 +0.25 x175 Confrontational [place]: Full to finger counting: Right: Yes Left: Yes Extra Ocular Movement: Normal Pupils: Right: Round Left: Round Size: Right: 3 Left: 3 React to light: Right: Yes Left: Yes Afferent pupil defect: Right: No Left: No (IOP): iCare OD: 13 OS: 14 Dilation: tropicamide 1% and neosynephrine OU @9:45am /es/ CHLOÉ KENDALL [facility] Signed: 12/23/2024 09:46 JAZZMINE KENDALL [facility]
--- OUTSIDE RECORDS SUMMARY | 2025-01-09 17:46 | XMS_ITS | Encounter Summary ---
Author Name [facility] [place] [facility] [place] [facility] [place] [facility] [place] Address [address] [place] [address] Care Team Providers Care Pcts Name Role Phone CRESENCIO FLORENCE Primary Care [...] PART A Jul 25, 2016 PART A [id number] [phone] LORIE FLEMING PATIENT MEDICARE (WNR) MEDICARE (M) PART B Jul 25, 2016 PART B [id number] LORIE FLEMING PATIENT MEDICARE (WNR) MEDICARE (M) PART A Jul 25, 2016 PART A [id number] [phone] LORIE FLEMING PATIENT MEDICARE (WNR) MEDICARE (M) PART B Jul 25, 2016 PART B [id number] [phone] LORIE FLEMING PATIENT MEDICARE (WNR) MEDICARE (M) PART A Jul 25, 2016 PART A [id number] [phone] LONNIELORIE MARION PATIENT MEDICARE (WNR) MEDICARE (M) PART B Jul 25, 2016 PART B [id number] LORIE FLEMING PATIENT MEDICARE (WNR) MEDICARE (M) PART A Jul 25, 2016 PART A [id number] LORIE FLEMING PATIENT MEDICARE (WNR) MEDICARE (M) PART B Jul 25, 2016 PART B [id number] LORIE FLEMING PATIENT Selected Encounter This section includes the information on record at [place] for the Encounter. Date/Time Encounter Type Encounter Description Reason Provider Source May 06, 2024 09:36 AM CASE MANAGEMENT ADMIN PAT ACTIVTIES (MASNONCT) VIV HOFFMAN [place] Encounter Template Text not used by [place] Plan of Treatment: Future Appointments (+ 6 months) and Future Tests (+/- 45 days) The Plan of Treatment section includes future care activities for the patient [facility] [place] [facility] This section includes future appointments and future orders which are active, pending or scheduled. Future Appointments This section includes appointments that were scheduled to occur 6 months from the date of the Encounter, up to a maximum of 20 appointments. The data comes from all [place] treatment facilities. Appointment Date/Time Appointment Type Appointme nt Facility Name Nov 01, 2024 02:00 PM AMBULATORY - SURGERY [facility] Social History: Smoking Status (Most current) and Tobacco Use (All prior to encounter date) This section includes the most current, and the historical, smoking and tobacco- related health factors from the [place] facility where the Encounter took place. Current Smoking Status This section includes the most current smoking, or tobacco-related health factor, from the [place] facility where the Encounter took place. Date/Time Current Smoking Status Comment Magdalena ityajaira January 17, 2021 11:17 AM VA-TOBACCO USER EVERY DAY [facility] Tobacco Use History This section includes a history of the smoking, or tobacco-related health factors, that were collected on or before the date of the Encounter. The data comes from the [place] facility where the Encounter took place. Date/Time Smoking Status/Tobacco Use Comment F acility January 17, 2021 11:17 AM VA-TOBACCO USE > 1 5 LESS THAN 30 YEARS [facility] January 17, 2021 11:17 AM VA-TOBACCO USE ADVICE [facility] January 17, 2021 11:17 AM VA-TOBACCO USE HOLLOW HANDLE BENCH WORKER NO [facility] January 17, 2021 11:17 AM VA-TOBACCO USE MED NO [facility] January 17, 2021 11:17 AM VA-TOBACCO USER EVERY DAY [facility] Dec 08, 2019 08:49 AM VA-TOBACCO USE 30 YEARS OR MORE [facility] Dec 08, 2019 08:49 AM VA-TOBACCO USE ADVICE [facility] Dec 08, 2019 08:49 AM VA-TOBACCO USE HOLLOW HANDLE BENCH WORKER NO [facility] Dec 08, 2019 08:49 AM VA-TOBACCO USE MED NO [facility] Dec 08, 2019 08:49 AM VA-TOBACCO USE WI 30 MIN OF WAKE UP [facility] Dec 08, 2019 08:49 AM VA-TOBACCO USER EVERY DAY [facility] Nov 22, 2013 08:44 AM FORMER TOBACCO USE >1Y <7Y [facility] Advance Directives: All historical and current Section Date Range: From patient's date of to the date document was created. This section includes ALL of a patient's completed or amended [place] Advance and Rescinded Directives. The entries below indicate that a directive exists for the patient, but an actual copy is not included with this document. The data comes from all [place] facilities. Date Advance Directives Provider Source Feb 07, 2022 ADVANCE DIRECTIVE DISCUSSION SLY [facility] Feb 07, 2022 ADVANCE DIRECTIVE NIA [facility] Encounter Notes: All associated encounter notes This section contains the clinical notes associated to the Encounter. Date/Time Encounter Note(s) Provider Source May 06, 2024 09:36 AM RETAIL SPECIAL EVENT ASSOCIATE REFER RAL NOTE: LOCAL TITLE: TRAVELING/RELOCATING COORDINATOR NOTE STANDARD TITLE: RETAIL SPECIAL EVENT ASSOCIATE REFERRAL NOTE DATE OF NOTE: MAY 06, 2024@09:36 ENTRY DATE: MAY 06, 2024@09:36:06 AUTHOR: VIV HOFFMAN EXP COSIGNER: URGENCY: STATUS: COMPLETED Traveling Vet consult activity for: incoming/outgoing review for: scheduling, results, communication &/or chart review. /toshia/ ITALO WALSH TRAVELING COORDINATOR Signed: 05/06/2024 09:36 VIV HOFFMAN [facility]
--- OUTSIDE RECORDS SUMMARY | 2025-01-09 17:46 | XMS_ITS | Encounter Summary ---
Author Name [facility] [place] [facility] [place] Address [address] [place] [address] Care Team Providers Care Carver Hand Name Role Phone CRESENCIO FLORENCE Primary Care [...] PART B Jul 25, 2016 PART B [id number] [phone] LORIE FLEMING PATIENT MEDICARE (WNR) MEDICARE (M) PART A Jul 25, 2016 PART A [id number] LORIE FLEMING PATIENT MEDICARE (WNR) MEDICARE (M) PART B Jul 25, 2016 PART B [id number] [phone] LORIE FLEMING PATIENT MEDICARE (WNR) MEDICARE (M) PART A Jul 25, 2016 PART A [id number] [phone] LORIE FLEMING PATIENT MEDICARE (WNR) MEDICARE (M) PART A Jul 25, 2016 PART A [id number] LONNIELORIE MARION PATIENT MEDICARE (WNR) MEDICARE (M) PART B Jul 25, 2016 PART B [id number] LORIE FLEMING PATIENT MEDICARE (WNR) MEDICARE (M) PART A Jul 25, 2016 PART A [id number] LORIE FLEMING PATIENT MEDICARE (WNR) MEDICARE (M) PART B Jul 25, 2016 PART B [id number] LORIE FLEMING PATIENT Selected Encounter This section includes the information on record at [place] for the Encounter. Date/Time Encounter Type Encounter Description Reason Pro vider Source January 05, 2025 08:11 AM Outpatient Encounter TELEPHONE TRIAGE IHE Encounter Template Text not used by [place] Plan of Treatment: Future Appointments (+ 6 months) and Future Tests (+/- 45 days) The Plan of Treatment section includes future care activities for the patient from all [place] treatmentfacilities. This section includes future appointments and future orders which are active, pending or scheduled. Future Appointments This section includes appointments that were scheduled to occur 6 months from the date of the Encounter, up to a maximum of 20 appointments. The data comes from all [place] treatment facilities. Appointment Date/Time Appointment Type Appointme nt Facility Name January 07, 2025 11:00 AM AMBULATORY - SURGERY [facility] Mar 02, 2025 01:15 PM AMBULATORY - NONE [facility] Active, Pending, and Scheduled Orders This section includes a listing of several types of active, pending, and scheduled orders, including clinic medications orders, diagnostic test orders, procedure orders and consult orders; where the start date of the order is 45 days before the date of the Encounter or 45 days after the date of theEncounter. The data comes from all [place] treatment facilities. Test Date/Time Test Type Test Details Facility Name Dec 20, 2024 02:57 PM Consult Order ENDOSCOPY OUTPT PROCEDURE Cons [employer] Dec 20, 2024 02:59 PM Consult Order ORTHOPEDIC S OUTPT-HIP [facility] [employer] Lab Results: +/- 30 days of the encounter This section includes the Chemistry and Hematology Lab Results on record with [place] for the patient. Radiology Reports and Pathology [...] Dec 20, 2024 02:45 PM Reporting Lab: [facility] [id number] Performing Lab: [facility] [id number] CREATININE 1.2 mg/dL 0.7-1.2 UREA NITROGEN 11 [...] Dec 20, 2024 02:45 PM Reporting Lab: [facility] [id number] Performing Lab: [facility] [id number] WBC 9.2 4.0-11.0 RBC 5.08 4.60-6.20 HGB [...] and tobacco- related health factors from the [place] facility where the Encounter took place. Current Smoking Status This section includes the most current smoking, or tobacco-related health factor, from the [place] facility where the Encounter took place. Date/Time Current Smoking Status Comment Facil ity January 17, 2021 11:17 AM VA-TOBACCO DOESNT USE WI 30 MIN WAKEUP [facility] Tobacco Use History This section includes a history of the smoking, or tobacco-related health factors, that were collected on or before the date of the Encounter. The data comes from the [place] facility where the Encounter took place. Date/Time Smoking Status/Tobacco Use Comment F acility January 17, 2021 11:17 AM VA-TOBACCO USE > 1 5 LESS THAN 30 YEARS [facility] January 17, 2021 11:17 AM VA-TOBACCO USE ADVICE [facility] January 17, 2021 11:17 AM VA-TOBACCO USE SOLE INKER NO [facility] January 17, 2021 11:17 AM VA-TOBACCO USE MED NO [facility] January 17, 2021 11:17 AM VA-TOBACCO USER EVERY DAY [facility] Dec 08, 2019 08:49 AM VA-TOBACCO USE 30 YEARS OR MORE [facility] Dec 08, 2019 08:49 AM VA-TOBACCO USE ADVICE [facility] Dec 08, 2019 08:49 AM VA-TOBACCO USE SOLE INKER NO [facility] Dec 08, 2019 08:49 AM VA-TOBACCO USE MED NO [facility] Dec 08, 2019 08:49 AM VA-TOBACCO USE WI 30 MIN OF WAKE UP [facility] Dec 08, 2019 08:49 AM VA-TOBACCO USER EVERY DAY [facility] Nov 22, 2013 08:44 AM FORMER TOBACCO USE >1Y <7Y [facility] Advance Directives: All historical and current Section Date Range: From patient's date of to the date document was created. This section includes ALL of a patient's completed or amended [place] Advance and Rescinded Directives. The entries below indicate that a directive exists for the patient, but an actual copy is not included with this document. The data comes from all [place] facilities. Date Advance Directives Provider Source Feb 07, 2022 ADVANCE DIRECTIVE NIA MONROE [facility] Feb 07, 2022 ADVANCE DIRECTIVE DISCUSSION SLY MONROE [facility] Radiology Reports: +/- 30 days of the [...] the Encounter. The data comes from all [place] treatment facilities. Date/Time Radiology Report Provider Source Dec 20, 2024 02:59 PM HIP LEFT 2 VIEWS W/PELVIS: EDER FLEMING [id number] -1950 M Exm Date: DEC 20, 2024@14:59 Req Phys: CRESENCIO FLORENCE Pat Loc: [facility] (Req'g Loc) Im Loc: [facility] RADIOLOGY Service: [place] [address] (Case [id number] COMPLETE) HIP LEFT 2 VIEWS W/PELVIS (RAD Detailed) CPT:23921 Proc Modifiers : LEFT Reason for Study: [...] 20, 2024 Date Verified: DEC 20, 2024 Member Service Specialist E-Sig:/ES/LESLYE PEREZ MD Report: EXAMINATION: AP pelvis, [...] Primary Interpreting Staff: LESLYE PEREZ MD, RADIOLOGIST (Member Service Specialist) /LESLYE HOLLY [facility] Encounter Notes: All associated encounter notes This section contains the clinical notes associated to the Encounter. Date/Time Encounter Note(s) Provider Source January 05, 2025 08:11 AM PHARMACY NOTE: LOCAL TITLE: CCC: PHARMACY I STANDARD TITLE: PHARMACY NOTE DATE OF NOTE: JANUARY 05, 2025@08:11 ENTRY DATE: JANUARY 05, 2025@08:11:56 AUTHOR: MARCO ANTONIO CIFUENTES COSIGNER: URGENCY: STATUS: COMPLETED Care team is responsible for any follow up communication required with , and should contact local outpatient pharmacy for any immediate or urgent needs. Alerts are not monitored regularly by this user due to incoming calls through [place] [employer]. Medication renewal request: Medication renewal requested by: Austin Medications to be: Mailed out. Mail out locally Non-controlled substance(s): First request. Austin is requesting a renewal of the following: Medication: 1. NICOTINE 7MG/24HR PATCH - Austin's son came home and is a smoker so the is getting the urge and wants to stop it julio. Medications: Active and Recently Outpatient Medications (excluding Supplies): Active Outpatient Medications Status 1) ATORVASTATIN CALCIUM 20MG TAB TAKE ONE TABLET BY ACTIVE MOUTH EVERY DAY 2) CARBOXYMETHYLCELLULOSE NA 0.5% OPH SOLN INSTILL 1 ACTIVE DROP IN BOTH EYES FOUR TIMES A DAY NEEDED DRY EYE SYNDROME 3) FLUTICASONE PROP 50MCG 120D NASAL INHL SPRAY 1 SPRAY ACTIVE IN EACH NOSTRIL EVERY DAY FOR NASAL SYMPTOMS 4) LISINOPRIL 20MG TAB TAKE ONE TABLET BY MOUTH EVERY ACTIVE DAY FOR BLOOD PRESSURE 5) NICOTINE POLACRILEX 4MG MINI LOZENGE DISSOLVE 1 MINI ACTIVE LOZENGE IN MOUTH EVERY HOUR NEEDED TO QUIT TOBACCO 6) OLOPATADINE HCL 0.1% OPH SOLN INSTILL 1 DROP IN BOTH ACTIVE EYES EVERY DAY NEEDED ALLERGIC CONJUNCTIVITIS 7) OMEPRAZOLE 20MG EC CAP TAKE ONE CAPSULE BY MOUTH ACTIVE EVERY DAY ON AN EMPTY STOMACH, AT LEAST 30 MINUTES PRIOR TO A MEAL TO DECREASE STOMACH ACID 8) SERTRALINE HCL 100MG TAB TAKE ONE TABLET BY MOUTH ACTIVE EVERY DAY 9) TAMSULOSIN HCL 0.4MG CAP TAKE ONE CAPSULE BY MOUTH ACTIVE EVERY DAY Inactive Outpatient Medications Status 1) OLOPATADINE HCL 0.1% OPH SOLN INSTILL 1 DROP IN BOTH EYES TWICE A DAY NEEDED FOR EYE ALLERGIES Active Non-VA Medications Status 1) Non-VA MARINE LIPID (FISH OIL) CAP,ORAL MOUTH ACTIVE 2) Non-VA MULTIVITAMIN CAP/TAB 1 TABLET MOUTH ACTIVE 12 Total Medications /toshia/ MARCO ANTONIO CIFUENTES V23 [facility] POWDER WORKER TNT Signed: 01/05/2025 08:13 Receipt Acknowledged By: 01/05/2025 08:20 /toshia/ YUE WILSNO CLINICAL PHARMACIST PRACTITIONER MARCO ANTONIO CIFUENTES [facility]
--- OUTSIDE RECORDS SUMMARY | 2025-01-09 17:47 | XMS_ITS | Encounter Summary ---
Author Name [facility] [place] [facility] [place] Address [address] [place] [address] Care Team Providers Care Maintenance Service Dispatcher Name Role Phone CRESENCIO FLORENCE Primary Care [...] PART A Jul 25, 2016 PART A [id number] [phone] LORIE FLEMING PATIENT MEDICARE (WNR) MEDICARE (M) PART B Jul 25, 2016 PART B [id number] LORIE FLEMING PATIENT MEDICARE (WNR) MEDICARE (M) PART B Jul 25, 2016 PART B [id number] [phone] LONNIELORIE MARION PATIENT MEDICARE (WNR) MEDICARE (M) PART A Jul 25, 2016 PART A [id number] [phone] LORIE FLEMING PATIENT MEDICARE (WNR) MEDICARE (M) PART A Jul 25, 2016 PART A [id number] LONNIELORIE MARION PATIENT MEDICARE (WNR) MEDICARE (M) PART B Jul 25, 2016 PART B [id number] [phone] LORIE FLEMING PATIENT MEDICARE (WNR) MEDICARE (M) PART A Jul 25, 2016 PART A [id number] LORIE FLEMING PATIENT MEDICARE (WNR) MEDICARE (M) PART B Jul 25, 2016 PART B [id number] LORIE FLEMING PATIENT Selected Encounter This section includes the information on record at [place] for the Encounter. Date/Time Encounter Type Encounter Description Reason Pro vider Source Dec 02, 2024 10:20 AM Outpatient Encounter COMMUNITY CARE CONSULT IHE Encounter Template Text not used by [place] Plan of Treatment: Future Appointments (+ 6 months) and Future Tests (+/- 45 days) The Plan of Treatment section includes future care activities for the [facility] [place] [facility] This section includes future appointments and future orders which are active, pending or scheduled. Future Appointments This section includes appointments that were scheduled to occur 6 months from the date of the Encounter, up to a maximum of 20 appointments. The data comes from all [facility]. Appointment Date/Time Appointment Type Appointme nt Facility Name Dec 20, 2024 02:00 PM AMBULATORY - MEDICINE [facility] December 23, 2024 09:40 AM AMBULATORY - SURGERY [facility] January 07, 2025 11:00 AM AMBULATORY - SURGERY [facility] Mar 02, 2025 01:15 PM AMBULATORY - NONE [facility] Active, Pending, and Scheduled Orders This section includes a listing of several types of active, pending, and scheduled orders, including clinic medications orders, diagnostic test orders, procedure orders and consult orders; where the start date of the order is 45 days before the date of the Encounter or 45 days after the date of theEncounter. The data comes from all [facility]. Test Date/Time Test Type Test Details Facility Name Nov 01, 2024 11:14 AM Consult Order COMMUNITY CARE-UROLOGY Cons [employer] [facility] Dec 20, 2024 02:57 PM Consult Order ENDOSCOPY OUTPT PROCEDURE Cons [employer] Mixing [facility] Dec 20, 2024 02:59 PM Consult Order ORTHOPEDIC S OUTPT-HIP Cons [employer] [facility]visor[facility] Lab Results: +/- 30 days of the encounter This section includes the Chemistry and Hematology Lab Results on record with [place] for the patient. Radiology Reports and Pathology [...] PLASMA No comment entered. Ordering Provider: PEDRO FLORENEC Report Released Date/Time: Dec 20, 2024 02:45 PM Reporting Lab: [facility] [id number] Performing Lab: [facility] [id number] CREATININE 1.2 mg/dL 0.7-1.2 UREA NITROGEN 11 [...] Dec 20, 2024 02:45 PM Reporting Lab: [facility] [id number] Performing Lab: [facility] [id number] WBC 9.2 4.0-11.0 RBC 5.08 4.60-6.20 HGB [...] and tobacco- related health factors from the [place] facility where the Encounter took place. Current Smoking Status This section includes the most current smoking, or tobacco-related health factor, from the [place] facility where the Encounter took place. Date/Time Current Smoking Status Comment Magdalena ity January 17, 2021 11:17 AM VA-TOBACCO USER EVERY DAY [facility] Tobacco Use History This section includes a history of the smoking, or tobacco-related health factors, that were collected on or before the date of the Encounter. The data comes from the [place] facility where the Encounter took place. Date/Time Smoking Status/Tobacco Use Comment F acility January 17, 2021 11:17 AM VA-TOBACCO USE > 1 5 LESS THAN 30 YEARS [facility] January 17, 2021 11:17 AM VA-TOBACCO USE ADVICE [facility] January 17, 2021 11:17 AM VA-TOBACCO USE LUNCHROOM MONITOR NO [facility] January 17, 2021 11:17 AM VA-TOBACCO USE MED NO [facility] January 17, 2021 11:17 AM VA-TOBACCO USER EVERY DAY [facility] Dec 08, 2019 08:49 AM VA-TOBACCO USE 30 YEARS OR MORE [facility] Dec 08, 2019 08:49 AM VA-TOBACCO USE ADVICE [facility] Dec 08, 2019 08:49 AM VA-TOBACCO USE LUNCHROOM MONITOR NO [facility] Dec 08, 2019 08:49 AM VA-TOBACCO USE MED NO [facility] Dec 08, 2019 08:49 AM VA-TOBACCO USE WI 30 MIN OF WAKE UP [facility] Dec 08, 2019 08:49 AM VA-TOBACCO USER EVERY DAY [facility] Nov 22, 2013 08:44 AM FORMER TOBACCO USE >1Y <7Y [facility] Advance Directives: All historical and current Section Date Range: From patient's date of to the date document was created. This section includes ALL of a patient's completed or amended [place] Advance and Rescinded Directives. The entries below indicate that a directive exists for the patient, but an actual copy is not included with this document. The data comes from all [place] facilities. Date Advance Directives Provider Source Feb 07, 2022 ADVANCE DIRECTIVE NIA MONROE [facility] Feb 07, 2022 ADVANCE DIRECTIVE DISCUSSION SLY [facility]ROE [facility] Radiology Reports: +/- 30 days of [...] the Encounter. The data comes from all [place] treatment facilities. Date/Time Radiology Report Provider Source Dec 20, 2024 02:59 PM HIP LEFT 2 VIEWS W/PELVIS: EDER FLEMING [id number] -1950 M Exm Date: DEC 20, 2024@14:59 Req Phys: CRESENCIO FLORENCE Pat Loc: [facility] (Req'g Loc) [facility] Loc: [facility] RADIOLOGY Service: [place] [address] (Case [id number] COMPLETE) HIP LEFT 2 VIEWS W/PELVIS (RAD Detailed) CPT:88367 Proc Modifiers : LEFT Reason for Study: [...] 20, 2024 Date Verified: DEC 20, 2024 Barber Instructor E-Sig:/ES/LESLYE PEREZ MD Report: EXAMINATION: AP pelvis, [...] Primary Interpreting Staff: LESLYE PEREZ MD, RADIOLOGIST (Barber Instructor) /LESLYE HOLLY [facility] Encounter Notes: All associated encounter notes This section contains the clinical notes associated to the Encounter. Date/Time Encounter Note(s) Provider Source Dec 02, 2024 10:20 AM NONVA NOTE: LOCAL TITLE: COMMUNITY CARE PRE-AUTH LETTER (AUTOPRINT) STANDARD TITLE: NONVA NOTE DATE OF NOTE: DEC 02, 2024@10:20 ENTRY DATE: DEC 02, 2024@10:20:24 AUTHOR: HANG SAHU COSIGNER: URGENCY: STATUS: COMPLETED Nov EDER FLEMING [address] [place], [place] [address] Dear EDER FLEMING, Your VA provider has referred you to a provider within the community for care. Your medical care for urology has been authorized with the community care provider listed below. DO NOT REPORT TO THE [facility] Provider info: Care has been approved for the following vendor: Office name, address, and phone number: [facility] [id number] [place] [address] Please contact the identified provider to schedule your community appointment. If you need assistance with this appointment, please call your facility community care office [facility] Office of Community Care at [phone] during the hours of 8:30AM - 3:00PM. Please follow up with your local [facility] community care office once this is scheduled. This step is needed to ensure your referral duration is maximized and the [place] has accurate referral information for billing purposes. Authorization Number: [id number] Referral Issue Date: Oct Expiration Date: Apr (subject to change based on first appointment) If you are unable to schedule this appointment or the appointment is no longer needed, please contact the community provider above for notification/rescheduling and then call the [facility] Office of Community Care at [phone] during the hours of 8:30AM - 3:00PM. If you need additional care/services not mentioned above or your authorization has and additional care is needed, please contact your primary care provider for a new referral. To review all care/service(s) approved under your referral, please go to the following link: [email or web address]) Co-Payments: If you are required to pay a VA co-payment, you will be billed by the [place] for each authorized visit that you attend. However, you are NOT REQUIRED to make co-payments to a community provider. Thank you for the opportunity to serve you. Sincerely, [place] Community Care ([place]) /toshia/ HANG GRAF [facility] Signed: 12/02/2024 10:20 HANG SAHU [facility]
--- OUTSIDE RECORDS SUMMARY | 2025-01-09 17:47 | XMS_ITS | Encounter Summary ---
Author Name [facility] [place] [facility] [place] [facility] [place] Address [address] [place] [address] Care Team Providers Care Business Improvement Manager Name Role Phone CRESENCIO FLORENCE Primary Care [...] PART B Jul 25, 2016 PART B [id number] [phone] LORIE FLEMING PATIENT MEDICARE (WNR) MEDICARE (M) PART A Jul 25, 2016 PART A [id number] [phone] LORIE FLEMING PATIENT MEDICARE (WNR) MEDICARE (M) PART A Jul 25, 2016 PART A [id number] [phone] LORIE FLEMING PATIENT MEDICARE (WNR) MEDICARE (M) PART B Jul 25, 2016 PART B [id number] [phone] LORIE FLEMING PATIENT MEDICARE (WNR) MEDICARE (M) PART A Jul 25, 2016 PART A [id number] LORIE FLEMING PATIENT MEDICARE (WNR) MEDICARE (M) PART B Jul 25, 2016 PART B [id number] LORIE FLEMING PATIENT MEDICARE (WNR) MEDICARE (M) PART A Jul 25, 2016 PART A [id number] LORIE FLEMING PATIENT MEDICARE (WNR) MEDICARE (M) PART B Jul 25, 2016 PART B [id number] LORIE FLEMING PATIENT Selected Encounter This section includes the information on record at [place] for the Encounter. Date/Time Encounter Type Encounter Description Reason Provider Source Dec 20, 2024 02:00 PM OFFICE O/P EST MOD 30 MIN PRIMARY CARE/MEDICINE ICD-10-CM Z00.8 Encounter for other general examination KEO FLORENCE Encounter Template Text not used by [place] Assessments - Encounter Diagnoses This section includes the primary and secondary diagnoses documented for the Encounter. Date/Time Primary/Secondary Diagnosis Diagnosis Name Provider Source Dec 20, 2024 03:07 PM PRIMARY Encounter for other general examination KEO FLORENCE [facility] Dec 20, 2024 03:07 PM SECONDARY Essential (primary) hypertension KEO FLORENCE [facility] Dec 20, 2024 03:07 PM SECONDARY Gastro-esophageal reflux disease without esophagitis KEO FLORENCE [facility] Dec 20, 2024 03:07 PM SECONDARY Pain in left hip KEO FLORENCE [facility] Plan of Treatment: Future Appointments (+ 6 months) and Future Tests (+/- 45 days) The Plan of Treatment section includes future care activities for the patient from all [place] treatmentfacilities. This section includes future appointments and future orders which are active, pending or scheduled. Future Appointments This section includes appointments that were scheduled to occur 6 months from the date of the Encounter, up to a maximum of 20 appointments. The data comes from all [place] treatment facilities. Appointment Date/Time Appointment Type Appointme nt Facility Name December 23, 2024 09:40 AM AMBULATORY - SURGERY [facility] January 07, 2025 11:00 AM AMBULATORY - SURGERY [facility] Mar 02, 2025 01:15 PM AMBULATORY - NONE [facility] Active, Pending, and Scheduled Orders This section includes a listing of several types of active, pending, and scheduled orders, including clinic medications orders, diagnostic test orders, procedure orders and consult orders; where the start date of the order is 45 days before the date of the Encounter or 45 days after the date of theEncounter. The data comes from all [place] treatment facilities. Test Date/Time Test Type Test Details Facility Name Dec 20, 2024 02:57 PM Consult Order ENDOSCOPY OUTPT PROCEDURE Cons [facility] Dec 20, 2024 02:59 PM Consult Order ORTHOPEDIC S OUTPT-HIP [facility] Lab Results: +/- 30 days of the encounter This section includes the Chemistry and Hematology Lab Results on record with [place] for the patient. Radiology Reports and Pathology Reports are provided separately, in subsequent sections. Lab Results This section contains the Chemistry/Hematology Results that were resulted 30 days before or 30 daysafter the date of the Encounter. Date/Time Source Result Type Result - Unit Interpretation Reference Range Specimen Type Comment Dec 20, 2024 03:05 PM [facility] COMPREHENSIVE METABOLIC PANEL+MG PLASMA Specim en Type: PLASMA No comment entered. Ordering Provider: PEDRO FLORENCE Report Released Date/Time: Dec 20, 2024 02:45 PM Reporting Lab: [facility] [id number] Performing Lab: [facility] [id number] CREATININE 1.2 mg/dL 0.7-1.2 UREA NITROGEN 11 [...] Dec 20, 2024 02:45 PM Reporting Lab: [facility] [id number] Performing Lab: [facility] [id number] WBC 9.2 4.0-11.0 RBC 5.08 4.60-6.20 HGB [...] IG(META,MYELO,PRO) 0.2 ABS IMMATURE GRAN 0.0 0.0-0.1 Vital Signs: All taken on the encounter date This section contains inpatient and outpatient Vital Signs collected on the date of the Encounter. Date/Time Temperature Pulse Blood Pressure Respiratory Rate SP02 Pain Height Weight Body Mass Index Source Dec 20, 2024 02:21 PM 98.9 87 105/72 16 96 5 74 212.7 27 [facility] Social History: Smoking Status (Most current) and Tobacco Use (All prior to encounter date) This section includes the most current, and the historical, smoking and tobacco- related health factors from the [place] facility where the Encounter took place. Current Smoking Status This section includes the most current smoking, or tobacco-related health factor, from the [place] facility where the Encounter took place. Date/Time Current Smoking Status Comment Magdalena guardado Dec 20, 2024 02:00 PM VA-TOBACCO USE FORMER CIGARETTES [facility] Tobacco Use History This section includes a history of the smoking, or tobacco-related health factors, that were collected on or before the date of the Encounter. The data comes from the [place] facility where the Encounter took place. Date/Time Smoking Status/Tobacco Use Comment F acility Dec 20, 2024 02:00 PM VA-TOBACCO USE FORMER CIGARETTES [facility] Dec 15, 2023 12:30 PM VA-TOBACCO FORMER USER [facility] Dec 15, 2023 12:30 PM VA-TOBACCO QUIT < 1 YEAR [facility] January 03, 2023 10:00 AM VA-TOBACCO USE 5 TO 15 YEARS [facility] January 03, 2023 10:00 AM VA-TOBACCO USE ADVICE [facility] January 03, 2023 10:00 AM VA-TOBACCO USE PRODUCT OWNER NO [facility] January 03, 2023 10:00 AM VA-TOBACCO USE MED NO [facility] January 03, 2023 10:00 AM VA-TOBACCO USE WI 30 MIN OF WAKE UP [facility] January 03, 2023 10:00 AM VA-TOBACCO USER EVERY DAY [facility] January 10, 2022 02:30 PM VA-TOBACCO FORMER USER [facility] January 10, 2022 02:30 PM VA-TOBACCO QUIT 15 YRS OR MORE [facility] Nov 27, 2018 09:31 AM VA-TOBACCO USE 30 YEARS OR MORE [facility] Nov 27, 2018 09:31 AM VA-TOBACCO USE ADVICE [facility] Nov 27, 2018 09:31 AM VA-TOBACCO USE PRODUCT OWNER NO [facility] Nov 27, 2018 09:31 AM VA-TOBACCO USE MED NO [facility] Nov 27, 2018 09:31 AM VA-TOBACCO USE WI 30 MIN OF WAKE UP [facility] Nov 27, 2018 09:31 AM VA-TOBACCO USER EVERY DAY [facility] Dec 20, 2017 10:44 AM CURRENT TOBACCO USER [facility] Nov 04, 2016 10:54 AM CURRENT TOBACCO USER [facility] Nov 09, 2015 08:06 AM CURRENT TOBACCO USER [facility] Nov 10, 2014 11:06 AM CURRENT TOBACCO USER [facility] Advance Directives: All historical and current Section Date Range: From patient's date of to the date document was created. This section includes ALL of a patient's completed or amended VA Advance and Rescinded Directives. The entries below indicate that a directive exists for the patient, but an actual copy is not included with this document. The data comes from all [place] facilities. Date Advance Directives Provider Source Feb 07, 2022 ADVANCE DIRECTIVE DISCUSSION SLY [facility] Feb 07, 2022 ADVANCE DIRECTIVE NIA [facility] Radiology Reports: +/- 30 days [...] the Encounter. The data comes from all [place] treatment facilities. Date/Time Radiology Report Provider Source Dec 20, 2024 02:59 PM HIP LEFT 2 VIEWS W/PELVIS: EDER FLEMING VALERIYKamilah [id number] -[id number] M Exm Date: DEC 20, 2024@14:59 Req Phys: CRESENCIO FLORENCE Pat Loc: [facility] PACT JULI[place]g Loc[place] [facility] [place] [facility] Service: [place] [address] (Case [id number] COMPLETE) HIP LEFT 2 VIEWS W/PELVIS (RAD Detailed) CPT:16490 Proc Modifiers : LEFT Reason for Study: [...] 20, 2024 Date Verified: DEC 20, 2024 Collision Center Manager E-Sig:/ES/LESLYE PEREZ MD Report: EXAMINATION: AP pelvis, [...] Primary Interpreting Staff: LESLYE PEREZ MD, RADIOLOGIST (Collision Center Manager) /LESLYE [facility] Encounter Notes: All associated encounter notes This section contains the clinical notes associated to the Encounter. Date/Time Encounter Note(s) Provider Source Dec 21, 2024 09:32 AM LETTERS: LOCAL TITLE: FOLLOW UP RESULTS LETTER STANDARD TITLE: LETTERS DATE OF NOTE: DEC 21, 2024@09:32 ENTRY DATE: DEC 21, 2024@09:32:17 AUTHOR: CRESENCIO FLORENCE COSIGNER: URGENCY: STATUS: COMPLETED [facility] [address] [place] [address] Nov EDER JEFFRIES LONNIE [address] [facility] [id number] Dear [place]: I am writing to inform you of the results of testing that you had done recently at the [facility]. - Complete Blood Count (red/white blood cell counts and platelets) White count: WBC 9.2 (12/20/24) (normal is 4.0-11.0) Hemoglobin: HGB 15.8 (12/20/24) (normal Male is 13.5-17.9; Female is 11.5-16) Hematocrit: HCT 47.9 (12/20/24) (normal Male is 41-54; Female is 34.5-48) Platelets: PLT 193 (12/20/24) (normal is 150-400) - Electrolytes including sodium and potassium SODIUM 140 (12/20/24) (normal is 136-145) POTASSIUM 4.2 (12/20/24) (normal is 3.5-5.1) - Calcium CALCIUM 9.9 (12/20/24) (normal is 8.5-10.1) - Kidney function CREATININE 1.2 (12/20/24)(normal Male = less than 1.2; normal Female = less than 1.0)) UREA NITROGEN 11 (12/20/24) (normal Male is 8-26; normal Female is 10-20) - Blood Sugar GLUCOSE 111 H (12/20/24) (normal is 70 - 100 if fasting) - Liver function Tests AST/SGOT 21 (12/20/24) (normal 11-34) Male: < 45 U/L, Female: < 34 U/L ALT/SGPT 17 (12/20/24) (normal is </= 44) Male: < 45 U/L, Female: < 34 U/L ALK PHOSPHATASE 56 (12/20/24) (normal 45-117) BILIRUBIN, TOTAL 0.6 (12/20/24) (normal 0.2-1.2) Additional Comments: Everythng looks good. If you have any further questions or problems, please contact our nursing staff or provider at the following number: [phone]. Sincerely, CRESENCIO SANDERS [facility] Dec 20, 2024 03:42 PM LETTERS: LOCAL TITLE: FOLLOW UP RESULTS LETTER STANDARD TITLE: LETTERS DATE OF NOTE: DEC 20, 2024@15:42 ENTRY DATE: DEC 20, 2024@15:43:03 AUTHOR: CRESENCIO FLORENCEIGNER: URGENCY: STATUS: COMPLETED [facility] [address] [place] [address] Nov EDER FLEMING [id number] [facility] [address] [place] : I am writing to inform you of the results of testing that you had done recently at the [facility]. Additional Comments: Your hip xrays shows some arthritis but no other acute issues such as fractures or dislocations. If you have any further questions or problems, please contact our nursing staff or provider at the following number: [phone]. Sincerely, CRESENCIO SANDERS [facility] Dec 20, 2024 03:08 PM MEDICATION MGT NOT E: LOCAL TITLE: MEDICATION RECONCILIATION NOTE STANDARD TITLE: MEDICATION MGT NOTE DATE OF NOTE: DEC 20, 2024@15:08 ENTRY DATE: DEC 20, 2024@15:08:19 AUTHOR: CRESENCIO FLORENCEER: URGENCY: STATUS: COMPLETED MEDICATION RECONCILIATION Active Outpatient Medications (excluding Supplies): Outpatient Medications Status 1) ATORVASTATIN CALCIUM 20MG TAB TAKE ONE TABLET BY MOUTH EVERY ACTIVE DAY 2) ATORVASTATIN CALCIUM 20MG TAB TAKE ONE TABLET BY MOUTH EVERY PENDING DAY 3) FLUTICASONE PROP 50MCG 120D NASAL INHL SPRAY 1 SPRAY IN EACH PENDING NOSTRIL EVERY DAY Indication: FOR NASAL SYMPTOMS 4) LISINOPRIL 20MG TAB TAKE ONE TABLET BY MOUTH EVERY DAY PENDING Indication: FOR BLOOD PRESSURE 5) LISINOPRIL 20MG TAB TAKE ONE TABLET BY MOUTH EVERY DAY ACTIVE Indication: FOR BLOOD PRESSURE 6) NICOTINE POLACRILEX 4MG MINI LOZENGE DISSOLVE 1 MINI LOZENGE PENDING IN MOUTH EVERY HOUR NEEDED Indication: TO QUIT TOBACCO 7) OMEPRAZOLE 20MG EC CAP TAKE ONE CAPSULE BY MOUTH EVERY DAY ACTIVE ON AN EMPTY STOMACH, AT LEAST 30 MINUTES PRIOR TO A MEAL TO DECREASE STOMACH ACID 8) OMEPRAZOLE 20MG EC CAP TAKE ONE CAPSULE BY MOUTH EVERY DAY PENDING ON AN EMPTY STOMACH, AT LEAST 30 MINUTES PRIOR TO A MEAL TO DECREASE STOMACH ACID 9) SERTRALINE HCL 100MG TAB TAKE ONE TABLET BY MOUTH EVERY DAY ACTIVE 10) TAMSULOSIN HCL 0.4MG CAP TAKE ONE CAPSULE BY MOUTH EVERY DAY PENDING Indication: SXS Non-VA Medications Status 1) Non-VA MARINE LIPID (FISH OIL) CAP,ORAL MOUTH ACTIVE 2) Non-VA MULTIVITAMIN CAP/TAB 1 TABLET MOUTH ACTIVE 12 Total Medications Medications listed above are accurate and should continue as ordered. /toshia/ CRESENCIO FLORENCE PHYSICIAN Signed: 12/20/2024 15:08 CRESENCIO FLORENCE CB Dec 20, 2024 02:42 PM H & P NOTE: LOCAL TITLE: [facility] ANNUAL VISIT STANDARD TITLE: H & P NOTE DATE OF NOTE: DEC 20, 2024@14:42 ENTRY DATE: DEC 20, 2024@14:42:16 AUTHOR: CRESENCIO FLORENCE COSIGNER: URGENCY: STATUS: COMPLETED Annual visit Non VA Providers: none Chief complaint: Patient is here for a routine annual visit. HPI:Misael spends about 6 months of the year in [place]. 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 currently his left hip is giving him trouble where it gets stiff, he can't do stairs easily and it hurts lot. Seoncdly he has a long history of reflu but 5 times over the past few months food has gotten stuck low in the esophogus and he has to vomit to get it out. He had this one before many years agog and he had an endoscopy and it went away. Assessment/Plan: 1. Routine labs today 2. ophto ses regularly e. dentist has partials 4. Audio has aides no issues 5. Medicatiosn reviewed, renewed 6.. does nto want ot do any more colonsocopies 7. will get xray of hip today and sedn to ortho 8. Gi consult becuase he many need another upper endo Labs and medications reviewed with patient. Discussed plan of care, patient verbalized understanding and agrees with plan. FU in 1 year for annual exam, sooner with any concerns. Clinical Reminders: Follow Up Colonoscopy: Colonoscopy is due based on information available to this reminder. Patient declined screening/surveillance. Patient educated on the benefits of colorectal cancer screening/surveillance and the risk if screening/surveillance is not completed. Level of Understanding: Good Past Medical History: Computerized Problem List is the source for the followin. Gastroesophageal reflux disease without esophagiti ACTIVE 2. Varicose veins (SNOMED CT 283021785) ACTIVE Right leg varicose vein stripping 1973 3. Tobacco use (SNOMED CT 234168490) ACTIVE 4. Knee pain ACTIVE Right knee arthroscopy 1995 5. Hyperlipidemia ACTIVE mild 6. Hyperglycemia ACTIVE 7. Erectile dysfunction ACTIVE 8. Anxiety ACTIVE 9. Hypertension ACTIVE 10. Appendicitis INACTIVE hx Lap Appy 2004 PSH: SURGERIES - s/p vein surgery, s/p faby, s/p nasal sugery x3 for eviated septum, sp t&&A, s/p hernia repair umbilical, s/p catract bilat, Social History: Alcohol: 3-4 drinsk per week Tobacco: none Marital Status:, lives iwth and son Occupation: retired Family History: mom 42 breast ca dad 70 2 brother 1 living 2 sisters 1 living BRANCH OF SERVICE: [employer] IMPAIRED HEARING 0% SC TINNITUS 10% SC SERVICE CONNECTED % - 10 ROS: CONS: negative for fever HEENT: negative CV: neg for acute chest pain, palpitation, RESPIRATORY: neg for acute dyspnea, cough, wheeze GI: neg for n/v, diarrhea, constipation : neg for dysuria, hematuria, MSK:neg for new difficulty with joint discomfort, myalgias, weakness. NEURO: neg for new motor or sensory complains SKIN: neg for new rash, lesion Physical Exam: Vitals: Blood Pressure: 105/72 (12/20/2024 14:21) Pulse: 87 (12/20/2024 14:21) Pulse Oximetry: 96% (12/20/2024 14:21) Resp: 16 (12/20/2024 14:21) Temp: 98.9 F [37.2 C] (12/20/2024 14:21) Height: 74 in [188.0 cm] (12/20/2024 14:21) Weight: 212.7 lb [96.48 kg] (12/20/2024 14:21) BMI:27.4 GENERAL:well developed, well nourished pt in nad. EYES:PERRLA,EOMI, conjuntiva clear, no discharge. EARS:canals clear, TMs intact NOSE:Nostrils patent, no discharge, THROAT:No enlarged tonsils, no inflammation, no exudate or ulcers. NECK: supple, no obvious thyromegaly HEART:Regular rate and rhythm , no obvious murmurs/rubs RESPIRATORY: Lungs clear to auscultation b/l, no rales or wheezes. ABDOMEN:soft, nontender, nondistended, no organomegaly, normal bs. ARIANA:[per patient consent]Prostate smooth, moderate, nontender, no nodulaarity noted, unable to palpate entire gland MSK:normal gait, moves all extremities, no joints swelling, rom normal. NEURO:alert and oriented, cranial nerves II-XII intact, speech clear, strength equal b/l, normal gait and movement, PSYCH: normal affect, well groomed SKIN:warm adn dry, normal color, no rash or suspicious lesions EXT: no cyanosis, no edema lower ext b/l Allergies: Patient has answered NKA SLT - Lab Tests Selected No data available for: .REGIONAL ALLERGY SC Vaccinations: IM - Immunizations ADMINISTERED Immunization Series Date Facility Reaction Info COVID-19 (PFIZER), MRNA, LNP-S, * 1 05/27/2022 [facility] * <C> COVID-19 (PFIZER), MRNA, LNP-S, * 4 11/24/2021 [place] <[facility]> COVID-19 (PFIZER), MRNA, LNP-S, * 3 05/29/2021 [place] <[facility]> COVID-19 (PFIZER), MRNA, LNP-S, * 2 11/03/2020 [place] <[facility]> COVID-19 (PFIZER), MRNA, LNP-S, * 1 10/14/2020 [facility] <C> COVID-19 (PFIZER), MRNA, LNP-S, * 05/27/2022 [facility] [facility] COVID-19 (PFIZER), MRNA, LNP-S, * 11/25/2021 [facility] [facility] COVID-19 (PFIZ[place]), MRNA, LNP-S, * 05/29/2021 [facility] [facility] COVID-19 (PFIZ[place]), MRNA, LNP-S, * 11/03/2020 [facility] [facility] COVID-19 ([place]), MRNA, LNP-S, * 10/14/2020 [facility] [facility] INFLUENZA, HIGH-DOSE, QUADRIVALE* 05/06/2022 [facility] [facility] INFLUENZA, HIGH-DOSE, TRIVALENT,* [facility] INFLUENZA, HIGH-DOSE, TRIVALENT,* 06/27/2017 [facility] * INFLUENZA, SPLIT VIRUS, QUADRIVA* 05/18/2021 [facility] * INFLUENZA, SPLIT VIRUS, QUADRIVA* 05/22/2020 [facility] * INFLUENZA, SPLIT VIRUS, TRIVALEN* 06/08/2018 [facility] * INFLUENZA, SPLIT VIRUS, TRIVALEN* 06/07/2016 [facility] * INFLUENZA, SPLIT VIRUS, TRIVALEN* 06/20/2015 [facility] * INFLUENZA, SPLIT VIRUS, TRIVALEN* 05/09/2011 [facility] INFLUENZA, SPLIT VIRUS, TRIVALEN* 06/14/2010 [facility] [facility] INFLUENZA, UNSPECIFIED FORMULATI* [facility] <C> INFLUENZA, UNSPECIFIED FORMULATI* 05/06/2022 [place] [place]* INFLUENZA, UNSPECIFIED FORMULATI* 06/23/2014 [place]* INFLUENZA, UNSPECIFIED FORMULATI* Outside p* NOVEL [id number], ALL FOR* 09/20/2009 [facility] [facility] PNEUMOCOCCAL CONJUGATE PCV 13 12/20/2017 [facility] * <C> PNEUMOCOCCAL POLYSACCHARIDE PPV23 01/18/2021 [facility] * PNEUMOCOCCAL POLYSACCHARIDE PPV23 11/09/2015 [facility] * <C> TDAP 12/25/2023 [facility] * TDAP 11/22/2013 [place]* <C> ZOSTER LIVE 11/22/2013 [place]* <C> ZOSTER RECOMBINANT 2 03/08/2019 [facility] * ZOSTER RECOMBINANT 1 12/04/2018 [facility] * CONTRAINDICATED No data available REFUSED ======= No data available <C> See the Detailed Immunizations Health Summary Component[DIM] for Comments * Value is truncated; see the Detailed Immunizations Health Summary Component[DIM] for complete text Labs: pending /toshia/ CRESENCIO FLORENCE PHYSICIAN Signed: 12/20/2024 15:07 CRESENCIO FLORENCE CBSANDRA Dec 20, 2024 02:27 PM PRIMARY CARE NURSI NG NOTE: LOCAL TITLE: [facility] NURSING PROGRESS NOTE STANDARD TITLE: PRIMARY CARE NURSING NOTE DATE OF NOTE: DEC 20, 2024@14:27 ENTRY DATE: DEC 20, 2024@14:27:31 AUTHOR: STERLING IRVIN EXP COSIGNER: URGENCY: STATUS: COMPLETED TYPE OF VISIT: Appointment Check In Type of appointment: In-person appointment REASON FOR VISIT: Annual ALLERGIES: Patient has answered NKA VITAL SIGNS: Blood Pressure: 105/72 (12/20/2024 14:21) Pulse: 87 (12/20/2024 14:21) Respiration: 16 (12/20/2024 14:21) Temperature: 98.9 F [37.2 C] (12/20/2024 14:21) Weight: 212.7 lb [96.48 kg] (12/20/2024 14:21) Height: 74 in [188.0 cm] (12/20/2024 14:21) BMI: 27.4 O2 Sat: 96% (12/20/2024 14:21) Pain: 5 (12/20/2024 14:21) Mike Miller hip MEDICATION Active Outpatient Medications (including Supplies): ATORVASTATIN CALCIUM 20MG TAB TAKE ONE TABLET BY MOUTH ACTIVE EVERY DAY LISINOPRIL 20MG TAB TAKE ONE TABLET BY MOUTH EVERY DAY ACTIVE Indication: FOR BLOOD PRESSURE OMEPRAZOLE 20MG EC CAP TAKE ONE CAPSULE BY MOUTH EVERY DAY ACTIVE ON AN EMPTY STOMACH, AT LEAST 30 MINUTES PRIOR TO A MEAL TO DECREASE STOMACH ACID SERTRALINE HCL 100MG TAB TAKE ONE TABLET BY MOUTH EVERY ACTIVE DAY Non-VA MARINE LIPID (FISH OIL) CAP,ORAL MOUTH ACTIVE Non-VA MULTIVITAMIN CAP/TAB 1 TABLET MOUTH ACTIVE 6 Total Medications Over the Counter/Herbal Medications: The patient states that they take some outside medications and/or herbals. ADV DIR Notification and Screening: ADVANCE DIRECTIVE NOTIFICATION: Patient was given written notification of the following rights: 1. Accept or refuse any medical treatment. 2. Complete a durable power of collections attorney for health care. 3. Complete a living will. ADVANCE DIRECTIVE SCREENING: Does patient have an Advance Directive? The patient has an Advance Directive. Does the patient wish to make any changes or revoke their current Advance Directive? No changes requested at this time. Nursing Annual Screening: Fall History Screen During the past 12 months, have you had any falls? Patient does not report any falls in the past 12 months. MEDICATIONS: Patient is on one of the following medication classes: Antihypertensives, Antidepressants, Antipsychotics, Diuretics, or Controlled substance medication used for pain. Script Talk Screen Are you able to read your prescription bottles with your glasses, magnifiers or other aids? Yes or patient not taking any prescriptions. Skin Screen Patient reports any current pressure ulcers, a history of pressure ulcers, or a wound from a medical radiation dosimetrist or Patient is bed-confined or a wheelchair-user or Patient requires assistance to transfer/change position No, Skin Screen is Negative Home Abuse/Violence Screen Is your home free of abuse and violence? Yes MOVE! Program Screen Body Mass Index (BMI)= 27.4 [place]: Collection DT Specimen Test Name Result Units Ref Range 05/15/2023 10:44 BLOOD !! HEMOGLOBIN A1C 5.1 % 4.0 - 6.0 !! Indicates COMMENTS AVAILABLE...Refer to Interim Lab Report. [place] Hgb A1C: No data available [place] Hgb A1C: No data available Point of Care Hgb A1C: POC HGB A1C____ Outpatient Nutrition Screen Body Mass Index (BMI)= 27.4 [place]: Collection DT Specimen Test Name Result Units Ref Range 05/15/2023 10:44 BLOOD !! HEMOGLOBIN A1C 5.1 % 4.0 - 6.0 !! Indicates COMMENTS AVAILABLE...Refer to Interim Lab Report. [place] Hgb A1C: No data available [place] Hgb A1C: No data available Point of Care Hgb A1C: POC HGB A1C____ Is patient's BMI less than 18.5? No Does patient have swallowing, coughing, or chewing problems affecting oral intake? No Has patient experienced unplanned weight loss or gain greater than 10 pounds over the last 2 months? No Is patient's Hgb A1C (Glycosylated Hemoglobin) greater than 9.5? Information not available Is patient receiving Total Parenteral Nutrition (TPN) or Tube Feedings? No Patient Health Education Screen BARRIERS/SPECIAL NEEDS: Hearing limitations Visual limitations PREFERRED STYLE OF LEARNING: Listening Client Assistive Service (DANE) Screen Does the patient require assistance with outpatient visit? No WHOLE HEALTH QUESTIONS: Whole Health Screening Why is addressing your overall health important to you? What do you want your health for (why do you want to be healthy)? .[place] for grand kids, Family. Suicide Screen: C-SSRS Screening [place] Suicide Severity Rating Scale (C-SSRS) screener 1. Over the past month, have you wished you were or wished you could go to sleep and not wake up? No 2. Over the past month, have you had any actual thoughts of killing yourself? No 3. Over the past month, have you been thinking about how you might do this? Response not required due to responses to other questions. 4. Over the past month, have you had these thoughts and had some intention of acting on them? Response not required due to responses to other questions. 5. Over the past month, have you started to work out or worked out the details of how to kill yourself? Response not required due to responses to other questions. 6. If yes, at any time in the past month did you intend to carry out this plan? Response not required due to responses to other questions. 7. In your lifetime, have you ever done anything, started to do anything, or prepared to do anything to end your life (for example, collected pills, obtained a gun, gave away valuables, went to the roof but didn't jump)? No 8. If YES, was this within the past 3 months? Response not required due to responses to other questions. Depression Screening: Perform PHQ-2 A PHQ-2 screen was performed. The score was 0 which is a negative screen for depression. Over the past two weeks, how often have you been bothered by the following problems? 1. Little interest or pleasure in doing things Not at all 2. Feeling down, depressed, or hopeless Not at all Alcohol Use Screen (AUDIT-C): Alcohol Screen: SCREEN FOR ALCOHOL (AUDIT-C) An alcohol screening test (AUDIT-C) was negative (score=3). 1. How often did you have a drink containing alcohol in the past year? Consider a drink to be a 12 ounce can or bottle of regular beer, 8 ounces of malt liquor, a 5 ounce glass of table wine, or a 1.5 ounce shot of liquor (like scotch, gin, or vodka). Two to three times per week 2. How many drinks containing alcohol did you have on a typical day when you were drinking in the past year? One or two drinks 3. How often did you have six or more drinks on one occasion in the past year? Never Tobacco Use Screening: The patient is a former cigarette smoker. The patient has never used other types of tobacco. 2yrs COVID-19 Immunization: Refused Pfizer Monovalent COVID-19 vaccine Immunization: COVID-19 (PFIZER), MRNA, LNP-S, PF, JOSS-SUCROSE, 30 MCG/0.3 ML (AGES 12+ YEARS) Refusal Reason: PATIENT DECISION Patient refuses all immunization(s) in the COVID-19 group Date Documented: 12/20/24 16:25 Influenza Immunization: Deferral / Refusal The patient declines to receive the recommended dose of seasonal influenza vaccine. Immunization: INFLUENZA, UNSPECIFIED FORMULATION Refusal Reason: PATIENT DECISION Patient refuses all immunization(s) in the FLU group Date Documented: 12/20/24 16:25 /toshia/ STERLING IRVIN LPN [employer] [facility] Signed: 12/20/2024 16:27 STERLING IRVIN [facility]
--- OUTSIDE RECORDS SUMMARY | 2025-01-09 17:47 | XMS_ITS | Continuity of Care Document ---
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 It does not include entries that were removed or entered in error. Problem Status Onset Date Problem Type Date of Resolution Comments Source HTN - Hypertension ([facility] 78937129) Active 08/25/[address] [facility] Hyperlipidemia ([facility] 61764334) Active 08/25/[address] [facility] Hyperlipidemia Active 11/11/19 15 Condition Dec 18, 2014 Entered By: DAVID ACEVES Comment: mild [facility] Appendicitis Inactive 08/25/19 05 Condition 12/18/2014 Dec 18, 2014 Entered By: DAVID ACEVES Comment: hx Lap Appy 2004 [facility] Knee pain Active 08/25/18 96 Condition Dec 18, 2014 Entered By: DAVID ACEVES Comment: Right knee arthroscopy 1995 [facility] Anxiety Active Condition [facility] Erectile dysfunction Active Condition [facility] Gastroesophageal reflux disease without esophagitis (SNOMED CT 898475739) Active Condition [facility] Hyperglycemia Active Condition [facility] Hypertension Active Condition [facility] Tobacco use (SNOMED CT 489617333) Active Condition [facility] Varicose veins (SNOMED CT 527564986) Active Condition Dec 18, 2014 Entered By: DAVID ACEVES Comment: Right leg varicose vein stripping 1973 [facility] Diagnosis: ICD-10-CM Z96.1 Presence of intraocular lens Active Diagnosis [facility] Diagnosis: ICD-10-CM Z00.8 Encounter for other general examination Active Diagnosis [facility] Diagnosis: ICD-10-CM F52.21 Male erectile disorder Active Diagnosis [facility] Diagnosis: ICD-10-CM D48.5 Neoplasm of uncertain behavior of skin Active Diagnosis [facility] Diagnosis: ICD-10-CM Z13.89 Encounter for screening for other disorder Active Diagnosis [facility] Diagnosis: ICD-10-CM 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 [facility] Diagnosis: ICD-10-CM R69 Illness, unspecified Active Diagnosis [facility] Diagnosis: ICD-10-CM I10 Essential (primary) hypertension Active Diagnosis [facility] Diagnosis: ICD-10-CM N52.9 Male erectile dysfunction, unspecified Active Diagnosis [facility] Diagnosis: ICD-10-CM Z72.0 Tobacco use Active Diagnosis [facility] Medications Combined list of outpatient medications from Department of Defense and Veterans Affairs facilities.Medications provided include 1) outpatient medications from the last 15 months, and 2) patient-reported medications. Medication Details Route Status Patient Instructions Prescription Expires Prescription Number Last Dispense Date Ordering Provider Order Date Order Qty Source AMLODIPINE BESYLATE 10MG TAB TAKE ONE TABLET BY MOUTH EVERY DAY ORAL DISCONT INUED BY PROVIDE R 07/14/2024 [id number] OSMAR WILSON 2022 90 [facility] ATORVASTATI N CA 20MG TAB TAKE ONE TABLET BY MOUTH EVERY DAY ORAL ACTIVE 12/21/2025 [id number] CRESENCIO FLORENCE 2024 90 [facility] ATORVASTATI N CA 20MG TAB TAKE ONE TABLET BY MOUTH EVERY DAY ORAL DISCONT INUED 12/25/2024 [id number] 5 CRESENCIO FLORENCE 2023 90 [facility] CARBOXYMETH YLCELLULOSE NA 0.5% SOLN,OPH INSTILL 1 DROP IN BOTH EYES FOUR TIMES A DAY NEEDED DRY EYE SYNDROME OPHTHA LMIC ACTIVE 12/24/2025 [id number] OSMANY MARIANO 2024 30 [facility] CARBOXYMETH YLCELLULOSE NA 0.5% SOLN,OPH INSTILL 1 DROP IN BOTH EYES FOUR TIMES A DAY NEEDED FOR DRY EYE SYNDROME OPHTHA LMIC DISCONT INUED BY PROVIDE R 12/17/2024 [id number] 4 OSMANY MARIANO 2023 30 [facility] FLUTICASONE PROPIONATE 50MCG/SPRAY SOLN,NASAL, 16GM SPRAY 1 SPRAY IN EACH NOSTRIL EVERY DAY FOR NASAL SYMPTOMS NASAL ACTIVE 12/21/2025 [id number] 5 CRESENCIO FLORENCE Mike 2024 2 [facility] LISINOPRIL 20MG TAB TAKE ONE TABLET BY MOUTH EVERY DAY FOR BLOOD PRESSURE ORAL ACTIVE 12/21/2025 [id number] 5 CRESENCIO FLORENCE 2024 90 [facility] LISINOPRIL 20MG TAB TAKE ONE TABLET BY MOUTH EVERY DAY FOR BLOOD PRESSURE ORAL DISCONT INUED 12/25/2024 [id number] 5 CRESENCIO FLORENCE 2023 90 [facility] MARINE LIPID (FISH OIL) CAP,ORAL TAKE BY MOUTH ORAL ACTIVE CRESENCIO FLORENCE Mike 2021 [facility] MULTIVITAMI NS CAP/TAB TAKE ONE TABLET BY MOUTH ORAL ACTIVE NAMAN CRESENCIO Mike 2021 [facility] NICOTINE 7MG/24HRS PATCH APPLY 1 PATCH TOPICALL Y EVERY DAY TO QUIT TOBACCO TOPICA L ACTIVE 01/06/2026 [id number] 5 KATIE KAVIN 2024 28 [facility] NICOTINE 7MG/24HRS PATCH APPLY 1 PATCH TOPICALL Y EVERY DAY TO QUIT TOBACCO TOPICA L DISCONT INUED BY PROVIDE R 12/25/2024 [id number] 4 CRESENCIO FLORENCE Mike 2023 28 [facility] NICOTINE 7MG/24HRS PATCH APPLY 1 PATCH TOPICALL Y EVERY DAY TO QUIT TOBACCO TOPICA L DISCONT INUED 12/15/2024 [id number] KATIE KAVIN 2023 28 [facility] NICOTINE 7MG/24HRS PATCH APPLY 1 PATCH TOPICALL Y EVERY DAY TO QUIT TOBACCO TOPICA L DISCONT INUED 10/20/2024 [id number] KATIE KAVIN 2023 28 [facility] NICOTINE POLACRILEX 4MG MINI LOZENGE DISSOLVE 1 MINI LOZENGE IN MOUTH EVERY HOUR NEEDED TO QUIT TOBACCO ORAL ACTIVE 12/21/2025 [id number] 5 CRESENCIO FLORENCE 2024 243 [facility] NICOTINE POLACRILEX 4MG MINI LOZENGE DISSOLVE 1 MINI LOZENGE IN MOUTH EVERY HOUR NEEDED TO QUIT TOBACCO ORAL DISCONT INUED 12/15/2024 [id number] 4 OSMAR WILSON 2023 243 [facility] OLOPATADINE HCL 0.1% SOLN,OPH INSTILL 1 DROP IN BOTH EYES EVERY DAY NEEDED ALLERGIC CONJUNCT IVITIS OPHTHA LMIC ACTIVE 12/24/2025 [id number] 5 GARCÍAMO JOSHEL A 2024 15 [facility] OLOPATADINE HCL 0.1% SOLN,OPH INSTILL 1 DROP IN BOTH EYES TWICE A DAY NEEDED FOR EYE ALLERGIE S OPHTHA LMIC 12/17/2024 [id number] 4 GARCÍAMO TOBY A 2023 10 [facility] OMEPRAZOLE 20MG CAP,EC TAKE ONE CAPSULE BY MOUTH EVERY DAY ON AN EMPTY STOMACH, AT LEAST 30 MINUTES PRIOR TO A MEAL TO DECREASE STOMACH ACID ORAL ACTIVE 12/21/2025 [id number] 5 CRESENCIO FLORENCE 2024 90 [facility] OMEPRAZOLE 20MG CAP,EC TAKE ONE CAPSULE BY MOUTH EVERY DAY ON AN EMPTY STOMACH, AT LEAST 30 MINUTES PRIOR TO A MEAL TO DECREASE STOMACH ACID ORAL DISCONT INUED 12/25/2024 [id number] 5 CRESENCIO FLORENCE 2023 90 [facility] SERTRALINE HCL 100MG TAB TAKE ONE TABLET BY MOUTH EVERY DAY ORAL ACTIVE 09/11/2025 [id number] 5 CRESENCIO FLORENCE 2024 90 [facility] SERTRALINE HCL 100MG TAB TAKE ONE TABLET BY MOUTH EVERY DAY ORAL DISCONT INUED 12/25/2024 [id number] 4 CRESENCIO FLORENCE 2023 90 [facility] SERTRALINE HCL 100MG TAB TAKE ONE TABLET BY MOUTH EVERY DAY ORAL DISCONT INUED 05/15/2024 [id number] 4 DEBBIE,ER IN L 2022 90 [facility] TAMSULOSIN HCL 0.4MG CAP TAKE ONE CAPSULE BY MOUTH EVERY DAY ORAL ACTIVE 12/21/2025 [id number] 5 CRESENCIO FLORENCE L 2024 90 [facility] TAMSULOSIN HCL 0.4MG CAP TAKE ONE CAPSULE BY MOUTH EVERY DAY ORAL DISCONT INUED 12/17/2024 [id number] 5 Lucien HADLEY 2023 90 [facility] TAMSULOSIN HCL 0.4MG CAP TAKE ONE CAPSULE BY MOUTH EVERY EVENING FOR PROSTATE ORAL DISCONT INUED 02/04/2024 [id number] MAUREEN WESTON 2022 30 [facility] Immunizations Combined list of available immunizations from the Department of Defense and Veterans Affairs facilities. Immunization Series Date Given Administered By Site Reaction Lot Number CVX Code Drug Salt Cutter Status Comments Source TDAP 2023 [place] IRV[facility] LEFT DELTO ID [id number] 115 complet ed [facility] COVID-19 (Nival), MRNA, LNP-S, PF, JOSS-SUCROSE, 30 MCG/0.3 ML (AGES 12+ YEARS) 2022 309 complet ed HISTORICA L INFORMATI ON - FROM OTHER REGISTRY, [facility] INFLUENZA, HIGH-DOSE, QUADRIVALENT, PF 1 2022 197 complet ed HISTORICA L INFORMATI ON - FROM OTHER REGISTRY, [facility] INFLUENZA, UNSPECIFIED FORMULATION 2022 88 complet ed HISTORICA L INFORMATI ON - FROM PATIENT'S RECALL, Stated he had Covis booster and Flu vaccine in [place] last year,2022 . Goes to [place] every winter. [facility] COVID-19 (Nival), MRNA, LNP-S, BIVALENT BOOSTER, PF, 30 MCG/0.3 ML DOSE 1 2021 300 complet ed HISTORICA L INFORMATI ON - FROM PATIENT'S RECALL, Lot#: [id number] [facility] COVID-19 (Nival), MRNA, LNP-S, PF, JOSS-SUCROSE, 30 MCG/0.3 ML (AGES 12+ YEARS) 2021 309 complet ed HISTORICA L INFORMATI ON - FROM OTHER REGISTRY, [facility] INFLUENZA, HIGH-DOSE, QUADRIVALENT 2021 197 complet ed HISTORICA L INFORMATI ON - FROM OTHER REGISTRY, [facility] INFLUENZA, UNSPECIFIED FORMULATION 2021 88 complet ed HISTORICA L INFORMATI ON - FROM OTHER PROVIDER, [facility] COVID-19 (Nival), MRNA, LNP-S, PF, JOSS-SUCROSE, 30 MCG/0.3 ML (AGES 12+ YEARS) 2021 309 complet ed HISTORICA L INFORMATI ON - FROM OTHER REGISTRY, [facility] COVID-19 (Nival), MRNA, LNP-S, PF, 30 MCG/0.3 ML DOSE 4 2021 208 complet ed HISTORICA L INFORMATI ON - FROM PATIENT'S RECALL, Lot#: [id number] Mfr: [employer], INC [facility] COVID-19 (Nival), MRNA, LNP-S, PF, 30 MCG/0.3 ML DOSE, JOSS-SUCROSE (AGES 12+ YEARS) 4 2021 217 complet ed HISTORICA L INFORMATI ON - FROM OTHER REGISTRY, [facility] COVID-19 (PFIZER), MRNA, LNP-S, PF, 30 MCG/0.3 ML DOSE 3 2020 208 complet ed HISTORICA L INFORMATI ON - FROM PATIENT'S RECALL, Lot#: [id number] Mfr: [employer], [employer] [facility] COVID-19 (PFIZER), MRNA, LNP-S, PF, JOSS-SUCROSE, 30 MCG/0.3 ML (AGES 12+ YEARS) 2020 309 complet ed HISTORICA L INFORMATI ON - FROM OTHER REGISTRY, [facility] INFLUENZA, INJECTABLE, QUADRIVALENT, PRESERVATIVE FREE 2020 150 complet ed [facility] PNEUMOCOCCAL POLYSACCHARID E PPV23 2020 33 complet ed [facility] COVID-19 (Nival), MRNA, LNP-S, PF, 30 MCG/0.3 ML DOSE 2 2020 208 complet ed HISTORICA L INFORMATI ON - FROM PATIENT'S RECALL, Lot#: [id number] Mfr: [employer], [employer] [facility] COVID-19 (PFIZER), MRNA, LNP-S, PF, JOSS-SUCROSE, 30 MCG/0.3 ML (AGES 12+ YEARS) 2020 309 complet ed HISTORICA L INFORMATI ON - FROM OTHER REGISTRY, [facility] COVID-19 (Nival), MRNA, LNP-S, PF, 30 MCG/0.3 ML DOSE 1 2020 208 complet ed HISTORICA L INFORMATI ON - FROM PATIENT'S RECALL, Lot#: [id number] Mfr: [employer], [employer] [facility] COVID-19 (Nival), MRNA, LNP-S, PF, JOSS-SUCROSE, 30 MCG/0.3 ML (AGES 12+ YEARS) 2020 309 complet ed HISTORICA L INFORMATI ON - FROM OTHER REGISTRY, [facility] COVID-19 (Nival), MRNA, LNP-S, PF, 30 MCG/0.3 ML DOSE 1 2020 208 complet ed HISTORICA L INFORMATI ON - FROM OTHER REGISTRY, [facility] INFLUENZA, INJECTABLE, QUADRIVALENT, PRESERVATIVE FREE 2019 150 complet ed [facility] INFLUENZA, HIGH DOSE SEASONAL 2018 135 complet ed [facility] ZOSTER RECOMBINANT 2 2018 187 complet ed [facility] ZOSTER RECOMBINANT 1 2018 187 complet ed [facility] INFLUENZA, SEASONAL, INJECTABLE, PRESERVATIVE FREE 2017 140 complet ed [facility] PNEUMOCOCCAL CONJUGATE PCV 13 2017 133 complet ed [employer], Lot # [id number], Exp Date 08/12 [facility] INFLUENZA, HIGH DOSE SEASONAL 2016 135 complet ed [facility] INFLUENZA, SEASONAL, INJECTABLE, PRESERVATIVE FREE 2015 140 complet ed [facility] PNEUMOCOCCAL POLYSACCHARID E PPV23 2015 33 complet ed [employer] Lot [id number] exp date 17 Oct 2016 [facility] INFLUENZA, SEASONAL, INJECTABLE, PRESERVATIVE FREE 2014 140 complet ed [facility] INFLUENZA, UNSPECIFIED FORMULATION 2013 88 complet ed [facility] TDAP 2013 115 complet ed [employer] hKline [id number] 11/26/15 [facility] ZOSTER LIVE 2013 121 complet ed [employer] [id number] exp [id number] [facility] INFLUENZA, UNSPECIFIED FORMULATION 2012 88 complet ed [facility] INFLUENZA, SEASONAL, INJECTABLE 2010 141 complet ed HISTORICA L INFORMATI ON - FROM OTHER REGISTRY, [facility] INFLUENZA, SEASONAL, INJECTABLE 2009 141 complet ed HISTORICA L INFORMATI ON - FROM OTHER REGISTRY, [facility] NOVEL INFLUENZA-H1N 1-09, ALL FORMULATIONS 2009 128 complet ed HISTORICA L INFORMATI ON - FROM OTHER REGISTRY, [facility] Results Combined list of recent chemistry, hematology and other laboratory results from Department of Defense and Veterans Affairs, ranging from 15 months to all on record, depending upon the facility. Order Name Results Value Reference Range Date Interpretation Specimen Comments Source COMPREHEN SIVE METABOLIC PANEL+MG CREATININE [MASS/VOLUM E] IN SERUM OR PLASMA 1.2 mg/dL 0.7 - 1.2 12/20 Specimen Type: PLASMA No comment entered. Ordering Provider: DEVI FLORENCE Report Released Date/Time: Dec 20, 2024 02:45 PM Reporting Lab: [facility] [address] Performing Lab: [facility] [phone] [facility] COMPREHEN SIVE METABOLIC PANEL+MG UREA NITROGEN [MASS/VOLUM E] IN SERUM OR PLASMA 11 mg/dL 8 - 26 12/20 Specimen Type: PLASMA No comment entered. Ordering Provider: DEVI FLORENCE Report Released Date/Time: Dec 20, 2024 02:45 PM Reporting Lab: [facility] [phone] Performing Lab: [facility] [phone] [facility] COMPREHEN SIVE METABOLIC PANEL+MG GLUCOSE [MASS/VOLUM E] IN SERUM OR PLASMA 111 mg/dL 70 - 100 12/20 H Specimen Type: PLASMA No comment entered. Ordering Provider: DEVI FLORENCE Report Released Date/Time: Dec 20, 2024 02:45 PM Reporting Lab: [facility] [phone] Performing Lab: [facility] [phone] [facility] COMPREHEN SIVE METABOLIC PANEL+MG SODIUM [MOLES/VOLU ME] IN SERUM OR PLASMA 140 mmol/L 136 - 145 12/20 Specimen Type: PLASMA No comment entered. Ordering Provider: DEVI FLORENCE Report Released Date/Time: Dec 20, 2024 02:45 PM Reporting Lab: [facility] [phone] Performing Lab: [facility] [address] [facility] COMPREHEN SIVE METABOLIC PANEL+MG POTASSIUM [MOLES/VOLU ME] IN SERUM OR PLASMA 4.2 mmol/L 3.5 - 5.1 12/20 Specimen Type: PLASMA No comment entered. Ordering Provider: DEVI FLORENCE Report Released Date/Time: Dec 20, 2024 02:45 PM Reporting Lab: [facility] [phone] Performing Lab: [facility] [phone] [facility] COMPREHEN SIVE METABOLIC PANEL+MG CHLORIDE [MOLES/VOLU ME] IN SERUM OR PLASMA 106 mmol/L 98 - 107 12/20 Specimen Type: PLASMA No comment entered. Ordering Provider: DEVI FLORENCE Report Released Date/Time: Dec 20, 2024 02:45 PM Reporting Lab: [facility] [address] Performing Lab: [facility] [phone] [facility] COMPREHEN SIVE METABOLIC PANEL+MG CARBON DIOXIDE, TOTAL [MOLES/VOLU ME] IN SERUM OR PLASMA 21 mmol/L 22 - 29 12/20 L Specimen Type: PLASMA No comment entered. Ordering Provider: DEVI FLORENCE Report Released Date/Time: Dec 20, 2024 02:45 PM Reporting Lab: [facility] [phone] Performing Lab: [facility] [address] [facility] COMPREHEN SIVE METABOLIC PANEL+MG CALCIUM [MASS/VOLUM E] IN SERUM OR PLASMA 9.9 mg/dL 8.4 - 10.2 12/20 Specimen Type: PLASMA No comment entered. Ordering Provider: DEVI FLORENCE Report Released Date/Time: Dec 20, 2024 02:45 PM Reporting Lab: [facility] [phone] Performing Lab: [facility] [phone] [facility] COMPREHEN SIVE METABOLIC PANEL+MG PROTEIN [MASS/VOLUM E] IN SERUM OR PLASMA 8.1 g/dL 6.4 - 8.3 12/20 Specimen Type: PLASMA No comment entered. Ordering Provider: DEVI FLORENCE Report Released Date/Time: Dec 20, 2024 02:45 PM Reporting Lab: [facility] [phone] Performing Lab: [facility] [phone] [facility] COMPREHEN SIVE METABOLIC PANEL+MG ALBUMIN [MASS/VOLUM E] IN SERUM OR PLASMA 5.2 g/dL 3.5 - 5.0 12/20 H Specimen Type: PLASMA No comment entered. Ordering Provider: DEVI FLORENCE Report Released Date/Time: Dec 20, 2024 02:45 PM Reporting Lab: [facility] [phone] Performing Lab: [facility] [phone] [facility] COMPREHEN SIVE METABOLIC PANEL+MG BILIRUBIN.T OTAL [MASS/VOLUM E] IN SERUM OR PLASMA 0.6 mg/dL 0.2 - 1.2 12/20 Specimen Type: PLASMA No comment entered. Ordering Provider: DEVI FLORENCE Report Released Date/Time: Dec 20, 2024 02:45 PM Reporting Lab: [facility] [phone] Performing Lab: [facility] [phone] [facility] COMPREHEN SIVE METABOLIC PANEL+MG MAGNESIUM [MASS/VOLUM E] IN SERUM OR PLASMA 2.2 mg/dL 1.6 - 2.6 12/20 Specimen Type: PLASMA No comment entered. Ordering Provider: DEVI FLORENCE Report Released Date/Time: Dec 20, 2024 02:45 PM Reporting Lab: [facility] [phone] Performing Lab: [facility] [phone] [facility] COMPREHEN SIVE METABOLIC PANEL+MG ANION GAP IN SERUM OR PLASMA 13 mmol/L 5 - 15 12/20 Specimen Type: PLASMA No comment entered. Ordering Provider: DEVI FLORENCE Report Released Date/Time: Dec 20, 2024 02:45 PM Reporting Lab: [facility] [phone] Performing Lab: [facility] [address] [facility] COMPREHEN SIVE METABOLIC PANEL+MG ALKALINE PHOSPHATASE [ENZYMATIC ACTIVITY/VO LUME] IN SERUM OR PLASMA 56 U/L 40 - 150 12/20 Specimen Type: PLASMA No comment entered. Ordering Provider: DEVI FLORENCE Report Released Date/Time: Dec 20, 2024 02:45 PM Reporting Lab: [facility] [phone] Performing Lab: [facility] [phone] [facility] COMPREHEN SIVE METABOLIC PANEL+MG ALANINE AMINOTRANSF ERASE [ENZYMATIC ACTIVITY/VO LUME] IN SERUM OR PLASMA 17 U/L <44 - 44 12/20 Specimen Type: PLASMA No comment entered. Ordering Provider: DEVI FLORENCE Report Released Date/Time: Dec 20, 2024 02:45 PM Reporting Lab: [facility] [phone] Performing Lab: [facility] [address] [facility] COMPREHEN SIVE METABOLIC PANEL+MG ASPARTATE AMINOTRANSF ERASE [ENZYMATIC ACTIVITY/VO LUME] IN SERUM OR PLASMA 21 U/L 11 - 34 12/20 Specimen Type: PLASMA No comment entered. Ordering Provider: DEVI FLORENCE Report Released Date/Time: Dec 20, 2024 02:45 PM Reporting Lab: [facility] [phone] Performing Lab: [facility] [phone] [facility] COMPREHEN SIVE METABOLIC PANEL+MG GLOMERULAR FILTRATION RATE/1.73 SQ M.PREDICTED [VOLUME RATE/AREA] IN SERUM, PLASMA OR BLOOD BY CREATININE- BASED FORMULA (CKD-EPI 2020) 64 60 12/20 Specimen Type: PLASMA No comment entered. Ordering Provider: DEVI FLORENCE Report Released Date/Time: Dec 20, 2024 02:45 PM Reporting Lab: [facility] [phone] Performing Lab: [facility] [address] [facility] CBC & DIFF LEUKOCYTES [#/VOLUME] IN BLOOD BY AUTOMATED COUNT 9.2 4.0 - 11.0 12/20 Specimen Type: BLOOD Comment: Automated Differentia l Performed Ordering Provider: DEVI FLORENCE Report Released Date/Time: Dec 20, 2024 02:45 PM Reporting Lab: [facility] [phone] Performing Lab: [facility] [phone] [facility] CBC & DIFF ERYTHROCYTE S [#/VOLUME] IN BLOOD BY AUTOMATED COUNT 5.08 4.60 - 6.20 12/20 Specimen Type: BLOOD Comment: Automated Differentia l Performed Ordering Provider: DEVI FLORENCE Report Released Date/Time: Dec 20, 2024 02:45 PM Reporting Lab: [facility] [phone] Performing Lab: [facility] [phone] [facility] CBC & DIFF HEMOGLOBIN [MASS/VOLUM E] IN BLOOD 15.8 g/dL 13.5 - 17.9 12/20 Specimen Type: BLOOD Comment: Automated Differentia l Performed Ordering Provider: DEVI FLORENCE Report Released Date/Time: Dec 20, 2024 02:45 PM Reporting Lab: [facility] [phone] Performing Lab: [facility] [address] [facility] CBC & DIFF HEMATOCRIT [VOLUME FRACTION] OF BLOOD BY AUTOMATED COUNT 47.9 41.0 - 54.0 12/20 Specimen Type: BLOOD Comment: Automated Differentia l Performed Ordering Provider: DEVI FLORENCE Report Released Date/Time: Dec 20, 2024 02:45 PM Reporting Lab: [facility] [phone] Performing Lab: [facility] [phone] [facility] CBC & DIFF MCV [ENTITIC VOLUME] BY AUTOMATED COUNT 94.3 fL 80.0 - 100.0 12/20 Specimen Type: BLOOD Comment: Automated Differentia l Performed Ordering Provider: DEVI FLORENCE Report Released Date/Time: Dec 20, 2024 02:45 PM Reporting Lab: [facility] [phone] Performing Lab: [facility] [phone] [facility] CBC & DIFF MCH [ENTITIC MASS] BY AUTOMATED COUNT 31.1 pg 27.0 - 33.0 12/20 Specimen Type: BLOOD Comment: Automated Differentia l Performed Ordering Provider: DEVI FLORENCE Report Released Date/Time: Dec 20, 2024 02:45 PM Reporting Lab: [facility] [phone] Performing Lab: [facility] [address] [facility] CBC & DIFF MCHC [MASS/VOLUM E] BY AUTOMATED COUNT 33.0 g/dL 32.0 - 37.5 12/20 Specimen Type: BLOOD Comment: Automated Differentia l Performed Ordering Provider: DEVI FLORENCE Report Released Date/Time: Dec 20, 2024 02:45 PM Reporting Lab: [facility] [phone] Performing Lab: [facility] [address] [facility] CBC & DIFF PLATELETS [#/VOLUME] IN BLOOD BY AUTOMATED COUNT 193 150 - 400 12/20 Specimen Type: BLOOD Comment: Automated Differentia l Performed Ordering Provider: DEVI FLORENCE Report Released Date/Time: Dec 20, 2024 02:45 PM Reporting Lab: [facility] [address] Performing Lab: [facility] [address] [facility] CBC & DIFF PLATELET MEAN VOLUME [ENTITIC VOLUME] IN BLOOD BY AUTOMATED COUNT 9.9 fL 9.1 - 13.0 12/20 Specimen Type: BLOOD Comment: Automated Differentia l Performed Ordering Provider: DEVI FLORENCE Report Released Date/Time: Dec 20, 2024 02:45 PM Reporting Lab: [facility] [address] Performing Lab: [facility] [address] [facility] CBC & DIFF NEUTROPHILS /100 LEUKOCYTES IN BLOOD BY MANUAL COUNT 68.6 40.0 - 80.0 12/20 Specimen Type: BLOOD Comment: Automated Differentia l Performed Ordering Provider: DEVI FLORENCE Report Released Date/Time: Dec 20, 2024 02:45 PM Reporting Lab: [facility] [address] Performing Lab: [facility] [address] [facility] CBC & DIFF LYMPHOCYTES /100 LEUKOCYTES IN BLOOD BY MANUAL COUNT 22.3 15.0 - 45.0 12/20 Specimen Type: BLOOD Comment: Automated Differentia l Performed Ordering Provider: DEVI FLORENCE Report Released Date/Time: Dec 20, 2024 02:45 PM Reporting Lab: [facility] [address] Performing Lab: [facility] [address] [facility] CBC & DIFF MONOCYTES/1 00 LEUKOCYTES IN BLOOD BY AUTOMATED COUNT 6.9 2.0 - 12.0 12/20 Specimen Type: BLOOD Comment: Automated Differentia l Performed Ordering Provider: DEVI FLORENCE Report Released Date/Time: Dec 20, 2024 02:45 PM Reporting Lab: [facility] [address] Performing Lab: [facility] [address] [facility] CBC & DIFF EOSINOPHILS /100 LEUKOCYTES IN BLOOD BY AUTOMATED COUNT 1.7 0.0 - 6.0 12/20 Specimen Type: BLOOD Comment: Automated Differentia l Performed Ordering Provider: DEVI FLORENCE Report Released Date/Time: Dec 20, 2024 02:45 PM Reporting Lab: [facility] [id number] Performing Lab: [facility] [phone] [facility] CBC & DIFF BASOPHILS/1 00 LEUKOCYTES IN BLOOD BY MANUAL COUNT 0.3 0.0 - 2.0 12/20 Specimen Type: BLOOD Comment: Automated Differentia l Performed Ordering Provider: DEVI FLORENCE Report Released Date/Time: Dec 20, 2024 02:45 PM Reporting Lab: [facility] [phone] Performing Lab: [facility] [phone] [facility] CBC & DIFF ERYTHROCYTE DISTRIBUTIO N WIDTH [RATIO] BY AUTOMATED COUNT 13.1 11.5 - 14.5 12/20 Specimen Type: BLOOD Comment: Automated Differentia l Performed Ordering Provider: DEVI FLORENCE Report Released Date/Time: Dec 20, 2024 02:45 PM Reporting Lab: [facility] [phone] Performing Lab: [facility] [phone] [facility] CBC & DIFF LYMPHOCYTES [#/VOLUME] IN BLOOD BY AUTOMATED COUNT 2.1 1.0 - 4.0 12/20 Specimen Type: BLOOD Comment: Automated Differentia l Performed Ordering Provider: DEVI FLORENCE Report Released Date/Time: Dec 20, 2024 02:45 PM Reporting Lab: [facility] [id number] Performing Lab: [facility] [phone] [facility] CBC & DIFF MONOCYTES [#/VOLUME] IN BLOOD BY AUTOMATED COUNT 0.6 0.1 - 1.0 12/20 Specimen Type: BLOOD Comment: Automated Differentia l Performed Ordering Provider: DEVI FLORENCE Report Released Date/Time: Dec 20, 2024 02:45 PM Reporting Lab: [facility] [address] Performing Lab: [facility] [address] [facility] CBC & DIFF NEUTROPHILS [#/VOLUME] IN BLOOD BY AUTOMATED COUNT 6.3 2.0 - 7.7 12/20 Specimen Type: BLOOD Comment: Automated Differentia l Performed Ordering Provider: DEVI FLORENCE Report Released Date/Time: Dec 20, 2024 02:45 PM Reporting Lab: [facility] [address] Performing Lab: [facility] [address] [facility] CBC & DIFF EOSINOPHILS [#/VOLUME] IN BLOOD BY AUTOMATED COUNT 0.2 0.0 - 0.5 12/20 Specimen Type: BLOOD Comment: Automated Differentia l Performed Ordering Provider: DEVI FLORENCE Report Released Date/Time: Dec 20, 2024 02:45 PM Reporting Lab: [facility] [address] Performing Lab: [facility] [address] [facility] CBC & DIFF BASOPHILS [#/VOLUME] IN BLOOD BY AUTOMATED COUNT 0.0 0.0 - 0.2 12/20 Specimen Type: BLOOD Comment: Automated Differentia l Performed Ordering Provider: DEVI FLORENCE Report Released Date/Time: Dec 20, 2024 02:45 PM Reporting Lab: [facility] [address] Performing Lab: [facility] [address] [facility] CBC & DIFF IG(META,MYE LO,PRO) 0.2 12/20 Specimen Type: BLOOD Comment: Automated Differentia l Performed Ordering Provider: DEVI FLORENCE Report Released Date/Time: Dec 20, 2024 02:45 PM Reporting Lab: [facility] [address] Performing Lab: [facility] [address] [facility] CBC & DIFF IMMATURE GRANULOCYTE S [PRESENCE] IN BLOOD BY AUTOMATED COUNT 0.0 0.0 - 0.1 12/20 Specimen Type: BLOOD Comment: Automated Differentia l Performed Ordering Provider: DEVI FLORENCE Report Released Date/Time: Dec 20, 2024 02:45 PM Reporting Lab: [facility] [address] Performing Lab: [facility] [address] [facility] BASIC METABOLIC PANEL+MG CREATININE [MASS/VOLUM E] IN SERUM OR PLASMA 1.0 mg/dL 0.7 - 1.2 02/03 Specimen Type: PLASMA No comment entered. Ordering Provider: NGA WILSON Report Released Date/Time: Jan 27, 2024 09:53 AM Reporting Lab: [facility] [address] Performing Lab: [facility] [address] [place] [facility] BASIC METABOLIC PANEL+MG UREA NITROGEN [MASS/VOLUM E] IN SERUM OR PLASMA 11 mg/dL 8 - 26 02/03 Specimen Type: PLASMA No comment entered. Ordering Provider: NGA WILSON Report Released Date/Time: Jan 27, 2024 09:53 AM Reporting Lab: [facility] [address] Performing Lab: [facility] [address] [place] [facility] BASIC METABOLIC PANEL+MG GLUCOSE [MASS/VOLUM E] IN SERUM OR PLASMA 98 mg/dL 70 - 100 02/03 Specimen Type: PLASMA No comment entered. Ordering Provider: NGA WILSON Report Released Date/Time: Jan 27, 2024 09:53 AM Reporting Lab: [facility] [address] Performing Lab: [facility] [address] [place] [facility] BASIC METABOLIC PANEL+MG SODIUM [MOLES/VOLU ME] IN SERUM OR PLASMA 140 mmol/L 136 - 145 02/03 Specimen Type: PLASMA No comment entered. Ordering Provider: NGA WILSON Report Released Date/Time: Jan 27, 2024 09:53 AM Reporting Lab: [facility] [address] Performing Lab: [facility] [address] [place] [facility] BASIC METABOLIC PANEL+MG POTASSIUM [MOLES/VOLU ME] IN SERUM OR PLASMA 4.3 mmol/L 3.5 - 5.1 02/03 Specimen Type: PLASMA No comment entered. Ordering Provider: NGA WILSON Report Released Date/Time: Jan 27, 2024 09:53 AM Reporting Lab: [facility] [address] Performing Lab: [facility] [address] [place] [facility] BASIC METABOLIC PANEL+MG CHLORIDE [MOLES/VOLU ME] IN SERUM OR PLASMA 107 mmol/L 98 - 107 02/03 Specimen Type: PLASMA No comment entered. Ordering Provider: NGA WILSON Report Released Date/Time: Jan 27, 2024 09:53 AM Reporting Lab: [facility] [address] Performing Lab: [facility] [address] [place] [facility] BASIC METABOLIC PANEL+MG CARBON DIOXIDE, TOTAL [MOLES/VOLU ME] IN SERUM OR PLASMA 25 mmol/L 22 - 29 02/03 Specimen Type: PLASMA No comment entered. Ordering Provider: NGA WILSON Report Released Date/Time: Jan 27, 2024 09:53 AM Reporting Lab: [facility] [address] Performing Lab: [facility] [address] [place] [facility] BASIC METABOLIC PANEL+MG CALCIUM [MASS/VOLUM E] IN SERUM OR PLASMA 9.0 mg/dL 8.4 - 10.2 02/03 Specimen Type: PLASMA No comment entered. Ordering Provider: NGA WILSON Report Released Date/Time: Jan 27, 2024 09:53 AM Reporting Lab: [facility] [address] Performing Lab: [facility] [address] [place] [facility] BASIC METABOLIC PANEL+MG MAGNESIUM [MASS/VOLUM E] IN SERUM OR PLASMA 2.2 mg/dL 1.6 - 2.6 02/03 Specimen Type: PLASMA No comment entered. Ordering Provider: NGA WILSON Report Released Date/Time: Jan 27, 2024 09:53 AM Reporting Lab: [facility] [address] Performing Lab: [facility] [address] [place] [facility] BASIC METABOLIC PANEL+MG ANION GAP IN SERUM OR PLASMA 8 mmol/L 5 - 15 02/03 Specimen Type: PLASMA No comment entered. Ordering Provider: NGA WILSON Report Released Date/Time: Jan 27, 2024 09:53 AM Reporting Lab: [facility] [address] Performing Lab: [facility] [address] [place] [facility] BASIC METABOLIC PANEL+MG GLOMERULAR FILTRATION RATE/1.73 SQ M.PREDICTED [VOLUME RATE/AREA] IN SERUM, PLASMA OR BLOOD BY CREATININE- BASED FORMULA (CKD-EPI 2020) 80 60 02/03 Specimen Type: PLASMA No comment entered. Ordering Provider: NGA WILSON Report Released Date/Time: Jan 27, 2024 09:53 AM Reporting Lab: [facility] [address] Performing Lab: [facility] [address] [facility] COMPREHEN SIVE METABOLIC PANEL+MG CREATININE [MASS/VOLUM E] IN SERUM OR PLASMA 1.1 mg/dL 0.7 - 1.2 12/24 Specimen Type: PLASMA No comment entered. Ordering Provider: DEVI FLORENCE Report Released Date/Time: December 25, 2023 09:27 AM Reporting Lab: [facility] [address] Performing Lab: [facility] [address] [facility] COMPREHEN SIVE METABOLIC PANEL+MG UREA NITROGEN [MASS/VOLUM E] IN SERUM OR PLASMA 15 mg/dL 8 - 26 12/24 Specimen Type: PLASMA No comment entered. Ordering Provider: DEVI FLORENCE Report Released Date/Time: December 25, 2023 09:27 AM Reporting Lab: [facility] [address] Performing Lab: [facility] [address] [facility] COMPREHEN SIVE METABOLIC PANEL+MG GLUCOSE [MASS/VOLUM E] IN SERUM OR PLASMA 119 mg/dL 70 - 100 12/24 H Specimen Type: PLASMA No comment entered. Ordering Provider: DEVI FLORENCE Report Released Date/Time: December 25, 2023 09:27 AM Reporting Lab: [facility] [address] Performing Lab: [facility] [address] [facility] COMPREHEN SIVE METABOLIC PANEL+MG SODIUM [MOLES/VOLU ME] IN SERUM OR PLASMA 140 mmol/L 136 - 145 12/24 Specimen Type: PLASMA No comment entered. Ordering Provider: DEVI FLORENCE Report Released Date/Time: December 25, 2023 09:27 AM Reporting Lab: [facility] [address] Performing Lab: [facility] [address] [facility] COMPREHEN SIVE METABOLIC PANEL+MG POTASSIUM [MOLES/VOLU ME] IN SERUM OR PLASMA 4.1 mmol/L 3.5 - 5.1 12/24 Specimen Type: PLASMA No comment entered. Ordering Provider: DEVI FLORENCE Report Released Date/Time: December 25, 2023 09:27 AM Reporting Lab: [facility] [address] Performing Lab: [facility] [address] [facility] COMPREHEN SIVE METABOLIC PANEL+MG CHLORIDE [MOLES/VOLU ME] IN SERUM OR PLASMA 105 mmol/L 98 - 107 12/24 Specimen Type: PLASMA No comment entered. Ordering Provider: DEVI FLORENCE Report Released Date/Time: December 25, 2023 09:27 AM Reporting Lab: [facility] [address] Performing Lab: [facility] [address] [facility] COMPREHEN SIVE METABOLIC PANEL+MG CARBON DIOXIDE, TOTAL [MOLES/VOLU ME] IN SERUM OR PLASMA 24 mmol/L 22 - 29 12/24 Specimen Type: PLASMA No comment entered. Ordering Provider: DEVI FLORENCE Report Released Date/Time: December 25, 2023 09:27 AM Reporting Lab: [facility] [address] Performing Lab: [facility] [address] [facility] COMPREHEN SIVE METABOLIC PANEL+MG CALCIUM [MASS/VOLUM E] IN SERUM OR PLASMA 9.4 mg/dL 8.4 - 10.2 12/24 Specimen Type: PLASMA No comment entered. Ordering Provider: DEVI FLORENCE Report Released Date/Time: December 25, 2023 09:27 AM Reporting Lab: [facility] [address] Performing Lab: [facility] [address] [facility] COMPREHEN SIVE METABOLIC PANEL+MG PROTEIN [MASS/VOLUM E] IN SERUM OR PLASMA 7.0 g/dL 6.0 - 8.3 12/24 Specimen Type: PLASMA No comment entered. Ordering Provider: DEVI FLORENCE Report Released Date/Time: December 25, 2023 09:27 AM Reporting Lab: [facility] [address] Performing Lab: [facility] [address] [facility] COMPREHEN SIVE METABOLIC PANEL+MG ALBUMIN [MASS/VOLUM E] IN SERUM OR PLASMA 4.4 g/dL 3.5 - 5.2 12/24 Specimen Type: PLASMA No comment entered. Ordering Provider: DEVI FLORENCE Report Released Date/Time: December 25, 2023 09:27 AM Reporting Lab: [facility] [address] Performing Lab: [facility] [address] [facility] COMPREHEN SIVE METABOLIC PANEL+MG BILIRUBIN.T OTAL [MASS/VOLUM E] IN SERUM OR PLASMA 0.4 mg/dL 0.2 - 1.2 12/24 Specimen Type: PLASMA No comment entered. Ordering Provider: DEVI FLORENCE Report Released Date/Time: December 25, 2023 09:27 AM Reporting Lab: [facility] [address] Performing Lab: [facility] [address] [facility] COMPREHEN SIVE METABOLIC PANEL+MG MAGNESIUM [MASS/VOLUM E] IN SERUM OR PLASMA 2.0 mg/dL 1.6 - 2.6 12/24 Specimen Type: PLASMA No comment entered. Ordering Provider: DEVI FLORENCE Report Released Date/Time: December 25, 2023 09:27 AM Reporting Lab: [facility] [address] Performing Lab: [facility] [address] [facility] COMPREHEN SIVE METABOLIC PANEL+MG ANION GAP IN SERUM OR PLASMA 11 mmol/L 5 - 15 12/24 Specimen Type: PLASMA No comment entered. Ordering Provider: DEVI FLORENCE Report Released Date/Time: December 25, 2023 09:27 AM Reporting Lab: [facility] [address] Performing Lab: [facility] [address] [facility] COMPREHEN SIVE METABOLIC PANEL+MG ALKALINE PHOSPHATASE [ENZYMATIC ACTIVITY/VO LUME] IN SERUM OR PLASMA 49 U/L 40 - 150 12/24 Specimen Type: PLASMA No comment entered. Ordering Provider: DEVI FLORENCE Report Released Date/Time: December 25, 2023 09:27 AM Reporting Lab: [facility] [address] Performing Lab: [facility] [address] [facility] COMPREHEN SIVE METABOLIC PANEL+MG ALANINE AMINOTRANSF ERASE [ENZYMATIC ACTIVITY/VO LUME] IN SERUM OR PLASMA 14 U/L <55 - 55 12/24 Specimen Type: PLASMA No comment entered. Ordering Provider: DEVI FLORENCE Report Released Date/Time: December 25, 2023 09:27 AM Reporting Lab: [facility] [address] Performing Lab: [place] [phone] [facility] COMPREHEN SIVE METABOLIC PANEL+MG ASPARTATE AMINOTRANSF ERASE [ENZYMATIC ACTIVITY/VO LUME] IN SERUM OR PLASMA 15 U/L <34 - 34 12/24 Specimen Type: PLASMA No comment entered. Ordering Provider: DEVI FLORENCE Report Released Date/Time: December 25, 2023 09:27 AM Reporting Lab: [facility] [address] Performing Lab: [facility] [address] [facility] COMPREHEN SIVE METABOLIC PANEL+MG GLOMERULAR FILTRATION RATE/1.73 SQ M.PREDICTED [VOLUME RATE/AREA] IN SERUM, PLASMA OR BLOOD BY CREATININE- BASED FORMULA (CKD-EPI 2020) 71 60 12/24 Specimen Type: PLASMA No comment entered. Ordering Provider: DEVI FLORENCE Report Released Date/Time: December 25, 2023 09:27 AM Reporting Lab: [facility] [address] Performing Lab: [facility] [address] [facility] CBC & DIFF LEUKOCYTES [#/VOLUME] IN BLOOD BY AUTOMATED COUNT 8.29 10*3/u L 4.0 - 11.0 12/24 Specimen Type: BLOOD Comment: Automated Differentia l Performed Ordering Provider: DEVI FLORENCE Report Released Date/Time: December 25, 2023 09:27 AM Reporting Lab: [facility] [address] Performing Lab: [facility] [address] [facility] CBC & DIFF ERYTHROCYTE S [#/VOLUME] IN BLOOD BY AUTOMATED COUNT 4.49 10*6/u L 4.6 - 6.2 12/24 L Specimen Type: BLOOD Comment: Automated Differentia l Performed Ordering Provider: DEVI FLORENCE Report Released Date/Time: December 25, 2023 09:27 AM Reporting Lab: [facility] [address] Performing Lab: [facility] [address] [facility] CBC & DIFF HEMOGLOBIN [MASS/VOLUM E] IN BLOOD 13.8 g/dL 13.5 - 17.9 12/24 Specimen Type: BLOOD Comment: Automated Differentia l Performed Ordering Provider: DEVI FLORENCE Report Released Date/Time: December 25, 2023 09:27 AM Reporting Lab: [facility] [address] Performing Lab: [facility] [address] [facility] CBC & DIFF HEMATOCRIT [VOLUME FRACTION] OF BLOOD BY AUTOMATED COUNT 42.1 41 - 54 12/24 Specimen Type: BLOOD Comment: Automated Differentia l Performed Ordering Provider: DEVI FLORENCE Report Released Date/Time: December 25, 2023 09:27 AM Reporting Lab: [facility] [address] Performing Lab: [facility] [address] [facility] CBC & DIFF MCV [ENTITIC VOLUME] BY AUTOMATED COUNT 93.8 fL 80 - 100 12/24 Specimen Type: BLOOD Comment: Automated Differentia l Performed Ordering Provider: DEVI FLORENCE Report Released Date/Time: December 25, 2023 09:27 AM Reporting Lab: [facility] [address] Performing Lab: [facility] [address] [facility] CBC & DIFF MCH [ENTITIC MASS] BY AUTOMATED COUNT 30.7 pg 27 - 33 12/24 Specimen Type: BLOOD Comment: Automated Differentia l Performed Ordering Provider: DEVI FLORENCE Report Released Date/Time: December 25, 2023 09:27 AM Reporting Lab: [facility] [address] Performing Lab: [facility] [address] [facility] CBC & DIFF MCHC [MASS/VOLUM E] BY AUTOMATED COUNT 32.8 g/dL 32.0 - 37.5 12/24 Specimen Type: BLOOD Comment: Automated Differentia l Performed Ordering Provider: DEVI FLORENCE Report Released Date/Time: December 25, 2023 09:27 AM Reporting Lab: [facility] [address] Performing Lab: [facility] [address] [facility] CBC & DIFF PLATELETS [#/VOLUME] IN BLOOD BY AUTOMATED COUNT 163 10*3/u L 150 - 400 12/24 Specimen Type: BLOOD Comment: Automated Differentia l Performed Ordering Provider: DEVI FLORENCE Report Released Date/Time: December 25, 2023 09:27 AM Reporting Lab: [facility] [address] Performing Lab: [facility] [address] [facility] CBC & DIFF PLATELET MEAN VOLUME [ENTITIC VOLUME] IN BLOOD BY AUTOMATED COUNT 10.1 fL 7.4 - 10.4 12/24 Specimen Type: BLOOD Comment: Automated Differentia l Performed Ordering Provider: DEVI FLORENCE Report Released Date/Time: December 25, 2023 09:27 AM Reporting Lab: [facility] [address] Performing Lab: [facility] [address] [facility] CBC & DIFF NEUTROPHILS /100 LEUKOCYTES IN BLOOD BY MANUAL COUNT 63.4 40.0 - 80.0 12/24 Specimen Type: BLOOD Comment: Automated Differentia l Performed Ordering Provider: DEVI FLORENCE Report Released Date/Time: December 25, 2023 09:27 AM Reporting Lab: [facility] [address] Performing Lab: [facility] [address] [facility] CBC & DIFF LYMPHOCYTES /100 LEUKOCYTES IN BLOOD BY MANUAL COUNT 23.4 15.0 - 45.0 12/24 Specimen Type: BLOOD Comment: Automated Differentia l Performed Ordering Provider: DEVI FLORENCE Report Released Date/Time: December 25, 2023 09:27 AM Reporting Lab: [facility] [address] Performing Lab: [facility] [address] [facility] CBC & DIFF MONOCYTES/1 00 LEUKOCYTES IN BLOOD BY AUTOMATED COUNT 7.4 2.0 - 12.0 12/24 Specimen Type: BLOOD Comment: Automated Differentia l Performed Ordering Provider: DEVI FLORENCE Report Released Date/Time: December 25, 2023 09:27 AM Reporting Lab: [facility] [address] Performing Lab: [facility] [address] [facility] CBC & DIFF EOSINOPHILS /100 LEUKOCYTES IN BLOOD BY AUTOMATED COUNT 4.8 0.0 - 6.0 12/24 Specimen Type: BLOOD Comment: Automated Differentia l Performed Ordering Provider: DEVI FLORENCE Report Released Date/Time: December 25, 2023 09:27 AM Reporting Lab: [facility] [address] Performing Lab: [facility] [address] [facility] CBC & DIFF BASOPHILS/1 00 LEUKOCYTES IN BLOOD BY MANUAL COUNT 0.6 0.0 - 2.0 12/24 Specimen Type: BLOOD Comment: Automated Differentia l Performed Ordering Provider: DEVI FLORENCE Report Released Date/Time: December 25, 2023 09:27 AM Reporting Lab: [facility] [address] Performing Lab: [facility] [address] [facility] CBC & DIFF ERYTHROCYTE DISTRIBUTIO N WIDTH [RATIO] BY AUTOMATED COUNT 12.6 11.5 - 14.5 12/24 Specimen Type: BLOOD Comment: Automated Differentia l Performed Ordering Provider: DEVI FLORENCE Report Released Date/Time: December 25, 2023 09:27 AM Reporting Lab: [facility] [address] Performing Lab: [facility] [address] [facility] CBC & DIFF LYMPHOCYTES [#/VOLUME] IN BLOOD BY AUTOMATED COUNT 1.94 10*3/u L 1.0 - 4.0 12/24 Specimen Type: BLOOD Comment: Automated Differentia l Performed Ordering Provider: DEVI FLORENCE Report Released Date/Time: December 25, 2023 09:27 AM Reporting Lab: [facility] [address] Performing Lab: [facility] [address] [facility] CBC & DIFF MONOCYTES [#/VOLUME] IN BLOOD BY AUTOMATED COUNT 0.61 10*3/u L 0.1 - 1.0 12/24 Specimen Type: BLOOD Comment: Automated Differentia l Performed Ordering Provider: DEVI FLORENCE Report Released Date/Time: December 25, 2023 09:27 AM Reporting Lab: [facility] [address] Performing Lab: [facility] [address] [facility] CBC & DIFF NEUTROPHILS [#/VOLUME] IN BLOOD BY AUTOMATED COUNT 5.26 10*3/u L 2.0 - 7.7 12/24 Specimen Type: BLOOD Comment: Automated Differentia l Performed Ordering Provider: DEVI FLORENCE Report Released Date/Time: December 25, 2023 09:27 AM Reporting Lab: [facility] [address] Performing Lab: [facility] [address] [facility] CBC & DIFF EOSINOPHILS [#/VOLUME] IN BLOOD BY AUTOMATED COUNT 0.40 10*3/u L 0 - 0.5 12/24 Specimen Type: BLOOD Comment: Automated Differentia l Performed Ordering Provider: DEVI FLORENCE Report Released Date/Time: December 25, 2023 09:27 AM Reporting Lab: [facility] [address] Performing Lab: [facility] [address] [facility] CBC & DIFF BASOPHILS [#/VOLUME] IN BLOOD BY AUTOMATED COUNT 0.05 10*3/u L 0 - 0.2 12/24 Specimen Type: BLOOD Comment: Automated Differentia l Performed Ordering Provider: DEVI FLORENCE Report Released Date/Time: December 25, 2023 09:27 AM Reporting Lab: [facility] [address] Performing Lab: [facility] [address] [facility] CBC & DIFF IG(META,MYE LO,PRO) 0.4 12/24 Specimen Type: BLOOD Comment: Automated Differentia l Performed Ordering Provider: DEVI FLORENCE Report Released Date/Time: December 25, 2023 09:27 AM Reporting Lab: [facility] [address] Performing Lab: [facility] [address] [facility] CBC & DIFF IMMATURE GRANULOCYTE S [PRESENCE] IN BLOOD BY AUTOMATED COUNT 0.03 10*3/u L 0 - 0.1 12/24 Specimen Type: BLOOD Comment: Automated Differentia l Performed Ordering Provider: DEVI FLORENCE Report Released Date/Time: December 25, 2023 09:27 AM Reporting Lab: [facility] [address] Performing Lab: [facility] [address] [facility] HEMOGLOBI N A1C HEMOGLOBIN A1C/HEMOGLO BIN.TOTAL IN BLOOD 5.1 4.0 - 6.0 05/15 Specimen Type: BLOOD Comment: Values obtained from A1C measurement s can vary. For typical A1C assays, a reported value of 7.0 could actually be between 6.7 and 7.3 if measured by a reference method. A reported value of 9.0 could actually be between 8.7 and 9.3. Ref: http://www. ngsp.org/[place] Pdata.asp Ordering Provider: DEVI FLORENCE Report Released Date/Time: Mar 13, 2023 11:51 AM Reporting Lab: [facility] [address] Performing Lab: [facility] [address] MARYLU NAIR Vital Signs Combined list of inpatient and outpatient Vital Signs from Department of Defense and Veterans Affairs, ranging from 12 months to all on record, depending upon the facility. Vital Sign Value Date Comments Source SYSTOLIC BLOOD PRESSURE 105 12/20/2024 14:21:49 MARYLU NA[facility] DIASTOLIC BLOOD PRESSURE 72 12/20/2024 14:21:49 [facility] PULSE OXIMETRY 96 12/20/2024 14:21:49 [facility] WEIGHT 212.7 12/20/2024 14:21:49 [facility] BMI 27 kg/m2 12/20/2024 14:21:49 [facility] PAIN 5 12/20/2024 14:21:49 [facility] HEIGHT 74 12/20/2024 14:21:49 [facility] TEMPERATURE 98.9 12/20/2024 14:21:49 [facility] PULSE 87 12/20/2024 14:21:49 [facility] RESPIRATION 16 12/20/2024 14:21:49 [facility] SYSTOLIC BLOOD PRESSURE 112 04/19/2024 08:15:51 [facility] DIASTOLIC BLOOD PRESSURE 70 04/19/2024 08:15:51 [facility] PULSE OXIMETRY 97 04/19/2024 08:15:51 [facility] PAIN 0 04/19/2024 08:15:51 [facility] TEMPERATURE 97.7 04/19/2024 08:15:51 [facility] PULSE 85 04/19/2024 08:15:51 [facility] RESPIRATION 17 04/19/2024 08:15:51 [facility] Encounters Combined list of: 1) Encounters from Department of Veterans Affairs facilities going backup to the last 18 months, not all [place] inpatient encounters are included; 2) Encounters from the Department of Defense facilities going backup to 280 months. Location Location Details Encounter Type Encounter Number Reason For Visit Attending Provider ADM Date DC Date Status Disposition Source [facility] HC PRO PHONE CALL 11-20 MIN [id number] Diagnos is: ICD-10- CM Z72.0 Tobacco use BRITTA WILSON M 07/15 [facility] MTMS BY PHARM EST 15 MIN [id number] Diagnos is: ICD-10- CM Z72.0 Tobacco use KATIEBRITTA DICK M 08/21 [facility] MTMS BY PHARM EST 15 MIN [id number] Diagnos is: ICD-10- CM Z72.0 Tobacco use BRITTA WILSON 09/15 [facility] MTMS BY PHARM EST 15 MIN [id number] Diagnos is: ICD-10- CM Z72.0 Tobacco use BRITTA WILSON 10/20 [facility] MTMS BY PHARM EST 15 MIN [id number] Diagnos is: ICD-10- CM Z72.0 Tobacco use BRITTA WILSON 11/16 [facility] MTMS BY PHARM EST 15 MIN [id number] Diagnos is: ICD-10- CM Z72.0 Tobacco use BRITTA WILSON 12/14 [facility] [place] [facility] OFFICE O/P EST LOW 20 MIN [id number] Diagnos is: ICD-10- CM Z96.1 Presenc e of intraoc LEIDY Zayas 12/16 [facility] [place] [facility] Outpatient Encounter [id number] 12/16 [place] [facility] [place] [facility] Outpatient Encounter [id number] 12/24 [place] [facility] OFFICE O/P EST MOD 30 MIN [id number] Diagnos is: ICD-10- CM Z00.8 Encount er for other general examina tion Lucien FLORENCE 12/24 [facility] MTMS BY PHARM EST 15 MIN [id number] Diagnos is: ICD-10- CM Z72.0 Tobacco use BRITTA WILSON 01/11 [facility] [place] [facility] Outpatient Encounter [id number] 01/19 [place] [facility] [place] [facility] Out[place] Encounter [id number] 01/21 [place] [facility] [place] [facility] QNHP OL DIG ASSMT&MGMT 5-10 [id number] Diagnos is: ICD-10- CM I10 Essenti al (primar y) hyperte belkys WILSONKia DICK M 01/26 [place] [facility] [place] [facility] Out[place] Encounter [id number] 01/27 [facility] [place] BY PHARM EST 15 MIN [id number] Diagnos is: ICD-10- CM Z72.0 Tobacco use KATIEKia DICK M 02/08 [place] [facility] HC PRO PHONE CALL 5-10 MIN [id number] Diagnos is: ICD-10- CM I10 Essenti al (primar y) hyperte SAMANTHA Carlos R 02/09 [place] [facility] O/P EST MOD 30 MIN [id number] Diagnos is: ICD-10- CM N52.9 Male erectil e dysfunc tion, unspeci fiLONNIE Mcclure A 02/15 [place] [facility]ONE CALL 11-20 MIN [id number] Diagnos is: ICD-10- CM I10 Essenti al (primar y) hyperte SAMANTHA Carlos A R 03/02 [place] [facility] OFF/OP EST DECEMBER X REQ PHY/QHP [id number] Diagnos is: ICD-10- CM R69 Illness , unspeci fied Peyton CASTRO 04/19 [facility] OFFICE O/P EST LOW 20 MIN [id number] Diagnos is: ICD-10- CM 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 Outpatient Encounter [id number] Diagnos is: ICD-10- CM D48.5 Neoplas m of uncerta in behavio r of skin SHARONA JOHNSON 04/27 [facility] Outpatient Encounter [id number] 04/30 [facility] Outpatient Encounter [id number] 05/05 [facility] CASE MANAGEMENT [id number] Thiago HOFFMAN 05/06 [facility] Outpatient Encounter [id number] 05/07 [facility] CASE MANAGEMENT [id number] Thiago HOFFMAN 05/25 [facility] SYNCH AUDIO-ONLY EST LOW 20 [id number] Diagnos is: ICD-10- CM F52.21 Male erectil e disorde r LONNIE CLANCY A 11/01 [facility] [place] [facility] Outpatient Encounter [id number] 12/02 [facility] [place] [facility] [place] [facility] Outpatient Encounter [id number] 12/10 [facility] [place] [facility] Outpatient Encounter [id number] 12/20 [facility] OFFICE O/P EST MOD 30 MIN [id number] Diagnos is: ICD-10- CM Z00.8 Encount er for other general examina lyly Lucien FLORENCESUNG L 12/20 [facility] [place] [facility] OFFICE O/P EST LOW 20 MIN [id number] Diagnos is: ICD-10- CM Z96.1 Presenc e of intraoc ulLEIDY Barreto 12/23 [facility] En[facility] [id number] 01/05 [facility] Social History Combined list of available smoking, tobacco, and other social history from [facility] and [facility] facilities. 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 Additional future care activities may be listed in the Assessment and Plan section. Date/Time Care Activity Care Activity Detail Facili ty 03/02/2025 AMBULATORY - NONE AMBULATORY - NONE [facility] Advance Directives List of completed, amended, or rescinded Advance Directives on record at [facility] facilities. An actual copy of the Directive is not included. Date Advance Directive Provider Source 02/07/2022 [facility] DIRECTIVE NIA [facility]
== END 2025-01-09 12:11 | disposition home or self-care (01) ==
PROVIDERS: Emergency Provider Emergency Medicine
DX: S01.112A Laceration without foreign body of left eyelid and periocular area, initial encounter (principal); W31.9XXA Contact with unspecified machinery, initial encounter
CPT/HCPCS: 12052; 70450; 99283; 99284